=== PATIENT | male | born 1965 | race Caucasian/White ===

== ENCOUNTER → 2016-07-18 | Outpatient (REF) | payer MEDICARE, MEDICAID ==
[2016-07-18 20:14] LABS: BASO # 0.1 K/mm3 (0.0-0.2); BASO % 1.8 % (0.0-1.0); EOS # 0.1 K/mm3 (0.0-0.50); EOS % 1.1 % (0.0-3.0); LARGE UNSTAINED CELL # 0.1 K/mm3 (0.0-0.4); LARGE UNSTAINED CELL % 1.6 % (0.0-4.0); LYMPH # 2.1 K/mm3 (1.5-4.5); LYMPH % 29.1 % (24.0-44.0); MEAN CORPUSCULAR HGB CONC 34.3 g/dl (32.0-36.5); MEAN CORPUSCULAR VOLUME 87.5 fl (80.0-96.0); MONO # 0.4 K/mm3 (0.0-0.8); MONO % 6.1 % (0.0-5.0); NEUTROPHILS # 4.2 K/mm3 (1.8-7.7); NEUTROPHILS % 60.3 % (36.0-66.0); PLATELET COUNT, AUTOMATED 286 k/mm3 (150-450); RED CELL DISTRIBUTION WIDTH 12.8 % (11.5-14.5); WHITE BLOOD COUNT 6.9 K/mm3 (4.0-10.0)
[2016-07-18 20:48] LABS: ALBUMIN 4.2 GM/DL (3.2-5.2); ALBUMIN/GLOBULIN RATIO 1.5 (1.00-1.93); BILIRUBIN,TOTAL 0.5 MG/DL (0.2-1.0); CALCIUM LEVEL 8.9 MG/DL (8.5-10.1); CREATININE FOR GFR 1.37 MG/DL (0.70-1.30); FREE T4 1.13 NG/DL (0.76-1.46); GLOMERULAR FILTRATION RATE 58.1 (>56); POTASSIUM SERUM 4.5 MEQ/L (3.5-5.1)
[2016-07-22 00:15] LABS: Lyme Disease IgG/IgM Antibodie <0.91 ISR (0.00-0.90); Lyme Disease IgM Ab Quantitati <0.80 index (0.00-0.79)
== END ==
LOC: M LAB REF 19:38
PROVIDERS: ATTEND Physician Assistant
DX: R53.83 Other fatigue (principal)

== ENCOUNTER → 2016-10-17 | Outpatient (CLI) | payer MEDICARE ==
--- NOTE | 2016-10-17 11:26 | REP ---
TWO VIEW CHEST: No comparison. There is no evidence of acute infiltrate. No pleural effusion is seen. The heart is normal in size. The mediastinal silhouette is unremarkable. The visualized osseous structures are intact. There is mild tortuosity of the thoracic aorta. There are mild degenerative changes of the spine. IMPRESSION: No acute pulmonary disease. Signed by Ashutosh Limon MD 10/17/2016 05:36 P
== END ==
LOC: M ADAMS 10:27
PROVIDERS: ATTEND Family Medicine
DX: R07.89 Other chest pain (principal); R06.00 Dyspnea, unspecified; R53.83 Other fatigue; Z79.899 Other long term (current) drug therapy
CPT/HCPCS: 71020; 80053; 83036; 85025; 93005; G0463

== ENCOUNTER → 2016-10-17 | Outpatient (REF) | payer MEDICARE ==
[2016-10-17 13:09] LABS: BASO % 0.6 % (0.0-1.0); EOS # 0.1 K/mm3 (0.0-0.50); EOS % 0.9 % (0.0-3.0); LARGE UNSTAINED CELL # 0.1 K/mm3 (0.0-0.4); LARGE UNSTAINED CELL % 1.6 % (0.0-4.0); LYMPH # 1.7 K/mm3 (1.5-4.5); LYMPH % 23.2 % (24.0-44.0); MEAN CORPUSCULAR HEMOGLOBIN 30.4 pg (27.0-33.0); MEAN CORPUSCULAR HGB CONC 33.9 g/dl (32.0-36.5); MEAN CORPUSCULAR VOLUME 89.6 fl (80.0-96.0); MONO # 0.4 K/mm3 (0.0-0.8); MONO % 5.8 % (0.0-5.0); NEUTROPHILS # 4.9 K/mm3 (1.8-7.7); NEUTROPHILS % 67.9 % (36.0-66.0); PLATELET COUNT, AUTOMATED 300 k/mm3 (150-450); RED CELL DISTRIBUTION WIDTH 12.4 % (11.5-14.5); WHITE BLOOD COUNT 7.2 K/mm3 (4.0-10.0)
[2016-10-17 13:25] LABS: ALBUMIN 4.3 GM/DL (3.2-5.2); ALBUMIN/GLOBULIN RATIO 1.54 (1.00-1.93); ALKALINE PHOSPHATASE 61 U/L (45-117); ALT/SGPT 31 U/L (12-78); ANION GAP 7 MEQ/L (8-16); AST/SGOT 14 U/L (15-37); BILIRUBIN,TOTAL 0.5 MG/DL (0.2-1.0); BLOOD UREA NITROGEN 12 MG/DL (7-18); CALCIUM LEVEL 9.7 MG/DL (8.5-10.1); CARBON DIOXIDE LEVEL 27 MEQ/L (21-32); CHLORIDE LEVEL 105 MEQ/L (98-107); CREATININE FOR GFR 1.26 MG/DL (0.70-1.30); GLOMERULAR FILTRATION RATE > 60.0 (>56); GLUCOSE, FASTING 87 MG/DL (70-105); POTASSIUM SERUM 4.6 MEQ/L (3.5-5.1); SODIUM LEVEL 139 MEQ/L (136-145); TOTAL PROTEIN 7.1 GM/DL (6.4-8.2)
== END ==
LOC: M SFHCADAM 10:24
PROVIDERS: ATTEND Family Medicine
DX: R06.00 Dyspnea, unspecified (principal); R53.83 Other fatigue; R07.89 Other chest pain; Z79.899 Other long term (current) drug therapy

== ENCOUNTER 2018-01-12 15:11 | Emergency (ER) | payer OTHER, MEDICAID, MEDICARE ==
[2018-01-12] MEDS: ADACEL/BOOSTRIX VACCINE (DIPHTH/PERTUSS/ACELL/TETANUS)0.5ML SYR (90715) IM (16:23)
[2018-01-12] MEDS: CEPHALEXIN 500 MG CAP PO (16:24)
== END 2018-01-12 16:44 | disposition home or self-care (01) ==
LOC: M ED 15:11
DX: S61.213A Laceration without foreign body of left middle finger without damage to nail, initial encounter (principal); W26.8XXA Contact with other sharp object(s), not elsewhere classified, initial encounter; Y92.89 Other specified places as the place of occurrence of the external cause; F17.200 Nicotine dependence, unspecified, uncomplicated; Z88.8 Allergy status to other drugs, medicaments and biological substances
CPT/HCPCS: 90715

== ENCOUNTER 2019-06-16 09:19 | Emergency (ER) | payer MEDICAID, MEDICARE, OTHER ==
[~2019-06-16] VITALS: Ht 182.9 cm; Wt 80.6 kg
[~2019-06-16 09:19] MED LIST: KEFL500C17 PO
[2019-06-16] MEDS ORDERED: LIDOCAINE W/EPINEPHRINE 1% 20ML VIAL SC ONE (10:30)
[2019-06-16 10:56] LABS: BASO % 0.3 % (0.0-1.0); EOS # 0.1 10^3/uL (0.0-0.5); EOS % 0.7 % (0.0-3.0); HEMATOCRIT 46.3 % (42.0-52.0); HEMOGLOBIN 15.1 g/dl (13.5-17.5); LYMPH # 1.8 10^3/uL (1.5-5.0); LYMPH % 25.2 % (24.0-44.0); MEAN CORPUSCULAR HEMOGLOBIN 28.8 pg (27.0-33.0); MEAN CORPUSCULAR HGB CONC 32.6 g/dl (32.0-36.5); MEAN CORPUSCULAR VOLUME 88.4 fl (80.0-96.0); MONO # 0.6 10^3/uL (0.0-0.8); MONO % 7.7 % (0.0-5.0); NEUTROPHILS # 4.8 10^3/uL (1.5-8.5); NEUTROPHILS % 65.8 % (36.0-66.0); PLATELET COUNT, AUTOMATED 210 10^3/uL (150-450); RED BLOOD COUNT 5.24 10^6/uL (4.30-6.10); WHITE BLOOD COUNT 7.3 10^3/uL (4.0-10.0)
[2019-06-16 11:20] LABS: BLOOD UREA NITROGEN 11 MG/DL (7-18); CALCIUM LEVEL 8.7 MG/DL (8.5-10.1); CARBON DIOXIDE LEVEL 31 MEQ/L (21-32); CHLORIDE LEVEL 107 MEQ/L (98-107); CREATININE FOR GFR 0.98 MG/DL (0.70-1.30); GLOMERULAR FILTRATION RATE > 60.0 (>56); GLUCOSE, FASTING 102 MG/DL (70-100); POTASSIUM SERUM 4.2 MEQ/L (3.5-5.1); SODIUM LEVEL 141 MEQ/L (136-145)
[2019-06-16 11:26] LABS: INFLUENZA A AMPLIFICATION NEGATIVE (NEGATIVE); INFLUENZA B AMPLIFICATION NEGATIVE (NEGATIVE)
[2019-06-16] MEDS ORDERED: BACT800T5 PO (11:39)
[2019-06-16] MEDS ORDERED: IBUP-1022 PO (11:39)
[2019-06-16 11:43] VITALS: BP 124/57
[2019-06-16] MEDS ORDERED: BACTRIM 160MG/800MG DS TAB PO ONE (11:45)
[2019-06-16] MEDS ORDERED: IBUPROFEN 600 MG TAB PO ONE (11:45)
--- NOTE | 2019-06-16 14:27 | REP ---
Clinical: Cough and chills . Comparison: 10/17/2016 . Technique: PA and lateral. Findings: The mediastinum and cardiac silhouette are normal. The lung brooks are clear and without acute consolidation, effusion, or pneumothorax. The skeletal structures are intact and normal. Impression: 1. No acute cardiopulmonary process. Electronically Signed by Vasu Blanton MD 06/16/2019 10:54 A
== END 2019-06-16 11:50 | disposition home or self-care (01) ==
LOC: M ED 09:19
DX: L02.811 Cutaneous abscess of head [any part, except face] (principal); Z88.8 Allergy status to other drugs, medicaments and biological substances; F17.210 Nicotine dependence, cigarettes, uncomplicated

== ENCOUNTER 2019-06-28 07:41 | Inpatient (IN) | payer MEDICAID, MEDICARE ==
[~2019-06-28] VITALS: Ht 182.9 cm; Wt 81.0 kg
[~2019-06-28 07:41] MED LIST changes: +BACT800T5 PO; +CLEO150C PO; +IBUP-1022 PO; +NORC1TAB7 PO
[2019-06-28] MEDS ORDERED: KETOROLAC 30 MG/ML VIAL (J1885) As Ordered ONE (08:13)
[2019-06-28] MEDS ORDERED: KETOROLAC 30 MG/ML VIAL (J1885) IV ONE (08:15)
[2019-06-28] MEDS ORDERED: NS 1,000 ML IV ONE (08:15)
[2019-06-28 08:26] LABS: BASO # 0.1 10^3/uL (0.0-0.2); BASO % 0.4 % (0.0-1.0); EOS # 0.1 10^3/uL (0.0-0.5); EOS % 0.8 % (0.0-3.0); HEMATOCRIT 44.4 % (42.0-52.0); HEMOGLOBIN 14.3 g/dl (13.5-17.5); LYMPH % 16.5 % (24.0-44.0); MEAN CORPUSCULAR HEMOGLOBIN 29.1 pg (27.0-33.0); MEAN CORPUSCULAR HGB CONC 32.2 g/dl (32.0-36.5); MEAN CORPUSCULAR VOLUME 90.2 fl (80.0-96.0); MONO # 0.8 10^3/uL (0.0-0.8); MONO % 6.7 % (0.0-5.0); NEUTROPHILS # 9.1 10^3/uL (1.5-8.5); NEUTROPHILS % 74.8 % (36.0-66.0); PLATELET COUNT, AUTOMATED 325 10^3/uL (150-450); RED BLOOD COUNT 4.92 10^6/uL (4.30-6.10); WHITE BLOOD COUNT 12.2 10^3/uL (4.0-10.0)
[2019-06-28] MEDS ORDERED: MORPHINE 4 MG/ML 1ML VIAL/SYRINGE (J2270) IV ONE (08:45)
[2019-06-28] MEDS ORDERED: ONDANSETRON 4MG/2ML VIAL (J2405) IV ONE (08:45)
[2019-06-28 08:54] LABS: ALBUMIN 3.7 GM/DL (3.2-5.2); BILIRUBIN,DIRECT 0.1 MG/DL (0.0-0.2); BILIRUBIN,TOTAL 0.3 MG/DL (0.2-1.0); TOTAL PROTEIN 6.3 GM/DL (6.4-8.2)
[2019-06-28] MEDS ORDERED: PANTOPRAZOLE SODIUM 40 MG in D5W 50 ML IV SCH (09:30)
[2019-06-28] MEDS ORDERED: PIPERACILLIN/TAZOBACTAM SOD 3.375 GM in D5W MINI-BAG PLUS 50 ML IV ONE (09:30)
--- NOTE | 2019-06-28 09:40 | REP ---
CT ABDOMEN AND PELVIS WITHOUT CONTRAST: CT abdomen and pelvis performed without oral or IV contrast. Sagittal and coronal reconstruction images are performed. No infiltrate is seen in the visualized lung bases. The liver demonstrates a small cyst in the right lobe anteriorly approximately 9.0 mm in diameter. Gallbladder is grossly unremarkable. Spleen, adrenals, pancreas, and kidneys are grossly unremarkable. There is no hydronephrosis bilaterally. There is mild atherosclerotic calcification of the abdominal aorta without aneurysm. I see no adenopathy. There is thickening of the descending duodenum with mild surrounding edema and a tiny amount of fluid. There is extraluminal air focally along the posterior wall of the duodenum. Findings are consistent with a perforated duodenal ulcer. No other areas of free extraluminal air are seen. No other definite bowel abnormality is seen. The appendix is normal. No pelvic mass is seen. Urinary bladder is mildly distended and grossly unremarkable. IMPRESSION: Thickened descending duodenum with adjacent surrounding edema and tiny amount of fluid. There is extraluminal focal air along the posterior wall of the duodenum. Findings are consistent with a perforated duodenal ulcer. Jeanne Savage was informed of these findings at the time of the exam at approximately 9 a.m., 06/28/2019. Electronically Signed by Ashutosh Limon MD 06/28/2019 04:01 P
[2019-06-28] MEDS ORDERED: HYDR-3713 PO (09:46)
[2019-06-28] MEDS ORDERED: CLIN150C14 PO (09:46)
[2019-06-28] MEDS ORDERED: ONDANSETRON 4MG/2ML VIAL (J2405) IV PRN (12:00)
[2019-06-28] MEDS: MORPHINE 2 MG/ML 1ML VIAL (J2270) IV PRN ×3 (12:31→19:54)
[2019-06-28] MEDS: PANTOPRAZOLE 40MG INJ (PROTONIX) (C9113) IV SCH ×2 (14:34→20:46)
[2019-06-28] MEDS: LR 1,000 ML IV SCH ×2 (14:35→20:35)
[2019-06-28 15:32] VITALS: BP 123/72
[2019-06-28] MEDS: PIPERACILLIN/TAZOBACTAM SOD 3.375 GM in D5W MINI-BAG PLUS 50 ML IV SCH ×2 (16:51→22:30)
[2019-06-28 17:42] LABS: BASO % 0.1 % (0.0-1.0); EOS % 0.1 % (0.0-3.0); HEMATOCRIT 42.6 % (42.0-52.0); HEMOGLOBIN 13.8 g/dl (13.5-17.5); LYMPH # 0.6 10^3/uL (1.5-5.0); LYMPH % 3.3 % (24.0-44.0); MEAN CORPUSCULAR HEMOGLOBIN 29.3 pg (27.0-33.0); MEAN CORPUSCULAR HGB CONC 32.4 g/dl (32.0-36.5); MEAN CORPUSCULAR VOLUME 90.4 fl (80.0-96.0); MONO # 0.9 10^3/uL (0.0-0.8); MONO % 5.1 % (0.0-5.0); NEUTROPHILS # 15.8 10^3/uL (1.5-8.5); NEUTROPHILS % 90.9 % (36.0-66.0); PLATELET COUNT, AUTOMATED 284 10^3/uL (150-450); RED BLOOD COUNT 4.71 10^6/uL (4.30-6.10); WHITE BLOOD COUNT 17.3 10^3/uL (4.0-10.0)
--- NOTE | 2019-06-28 18:37 | REPVR ---
PROCEDURE INFORMATION: Exam: CT Abdomen Without Contrast Exam date and time: 06/28/2019 6:00 PM Age: 53 years old Clinical indication: Abnormal findings; Abnormal radiologic finding of the abdomen; Radiologic exam and body structure: CT ap; Duodenal perforation; Additional info: Follow up contained duodenal perforation TECHNIQUE: Imaging protocol: Computed tomography images of the abdomen without contrast. Radiation optimization: All CT scans at this facility use at least one of these dose optimization techniques: automated exposure control; mA and/or kV adjustment per patient size (includes targeted exams where dose is matched to clinical indication); or iterative reconstruction. COMPARISON: CT ABD PELVIS W/O CONTRAST 06/28/2019 8:45 AM FINDINGS: Lungs: Mild bilateral lower lobe atelectasis, increased since the prior study. Liver: Normal. No mass. Gallbladder and bile ducts: Mild gallbladder distention measuring 4.8 cm in diameter which is increased. Pancreas: Normal. No ductal dilation. Spleen: Normal. No splenomegaly. Adrenals: Normal. No mass. Kidneys and ureters: Normal. No hydronephrosis. Stomach and bowel: Normal. No obstruction. No mucosal thickening. Intraperitoneal space: Unremarkable. No free air. No significant fluid collection. Retroperitoneal space: Posterior to the second and proximal third portions of the duodenum, there is a persistent gas collection with surrounding retroperitoneal induration and suggestion of a developed wall which is slightly increased in size since the prior study. There is slight induration of the anterior pararenal space along the posterior aspect of the gallbladder and the anterior aspect of the right kidney which is probably anterior pararenal space. There is thickening of the anterior pararenal fascia. Lymph nodes: Unremarkable. No enlarged lymph nodes. Vasculature: There is mild calcification of the abdominal aorta with extension into the iliac arteries. Bones/joints: Unremarkable.No acute fracture. No dislocation. Soft tissues: Unremarkable. IMPRESSION: 1. Contained collection of retroperitoneal gas and fluid posterior to the second and proximal third portions of the duodenal sweep which is slightly more distended since the prior study done earlier in the day and may reflect a contained site of perforated post bulbar ulceration. Induration of the right anterior pararenal space is increased. 2. Mild distention of the gallbladder which is increased. 3. Mild bilateral lower lobe atelectasis, increased since the prior study. Electronically signed by: Akash Zambrano On 06/28/2019 18:37:03 PM
[2019-06-28 20:00] VITALS: BP 129/61
[2019-06-29] MEDS: MORPHINE 2 MG/ML 1ML VIAL (J2270) IV PRN (00:43)
[2019-06-29 02:00] VITALS: BP 173/89
[2019-06-29] MEDS: MORPHINE 4 MG/ML 1ML VIAL/SYRINGE (J2270) IV PRN ×4 (02:31→22:07)
[2019-06-29] MEDS: LR 1,000 ML IV SCH (03:39)
[2019-06-29] MEDS: PIPERACILLIN/TAZOBACTAM SOD 3.375 GM in D5W MINI-BAG PLUS 50 ML IV SCH ×4 (04:10→22:07)
[2019-06-29] MEDS: KETOROLAC 30 MG/ML VIAL (J1885) IV PRN ×2 (04:11→19:36)
[2019-06-29 05:00] VITALS: BP 116/67
[2019-06-29 05:03] LABS: BASO % 0.1 % (0.0-1.0); HEMATOCRIT 39.7 % (42.0-52.0); HEMOGLOBIN 13.2 g/dl (13.5-17.5); LYMPH # 0.6 10^3/uL (1.5-5.0); LYMPH % 3.5 % (24.0-44.0); MEAN CORPUSCULAR HEMOGLOBIN 29.7 pg (27.0-33.0); MEAN CORPUSCULAR HGB CONC 33.2 g/dl (32.0-36.5); MEAN CORPUSCULAR VOLUME 89.2 fl (80.0-96.0); MONO # 0.6 10^3/uL (0.0-0.8); MONO % 3.5 % (0.0-5.0); NEUTROPHILS # 15.9 10^3/uL (1.5-8.5); NEUTROPHILS % 92.4 % (36.0-66.0); PLATELET COUNT, AUTOMATED 270 10^3/uL (150-450); RED BLOOD COUNT 4.45 10^6/uL (4.30-6.10); WHITE BLOOD COUNT 17.2 10^3/uL (4.0-10.0)
[2019-06-29 05:28] LABS: ALBUMIN 2.8 GM/DL (3.2-5.2); ALT/SGPT 21 U/L (12-78); AMYLASE 31 U/L (25-115); BILIRUBIN,TOTAL 0.5 MG/DL (0.2-1.0); BLOOD UREA NITROGEN 17 MG/DL (7-18); CALCIUM LEVEL 8.4 MG/DL (8.5-10.1); CARBON DIOXIDE LEVEL 25 MEQ/L (21-32); CHLORIDE LEVEL 107 MEQ/L (98-107); CREATININE FOR GFR 1.09 MG/DL (0.70-1.30); GLOMERULAR FILTRATION RATE > 60.0 (>56); GLUCOSE, FASTING 130 MG/DL (70-100); POTASSIUM SERUM 3.7 MEQ/L (3.5-5.1); SODIUM LEVEL 139 MEQ/L (136-145); TOTAL PROTEIN 5.8 GM/DL (6.4-8.2)
[2019-06-29] MEDS: PANTOPRAZOLE 40MG INJ (PROTONIX) (C9113) IV SCH ×2 (07:36→20:19)
--- NOTE | 2019-06-29 08:36 | IPN ---
DATE: 06/29/2019 HISTORY: The patient was admitted on 06/28/2019 with sudden onset of pain in the right midabdomen and flank. A CT scan showed evidence for a contained perforation in the region of the second portion of the duodenum. The patient was started on antibiotics and Protonix and kept nothing by mouth. Later in the day repeat labs were checked and showed still an elevated white blood cell count and a repeat CT scan showed slightly increased amounts of air contained still adjacent to the duodenum. Overnight, he had at times severe pain up to a 10/10 requiring morphine. He has had no nausea or vomiting but continues to complain of severe pain in the right midabdomen and right lower quadrant and flank. He has also complained of some pain more on the left side in the lower abdomen as well. Vital signs show that he has remained afebrile. His pulse has been up somewhat since about 8 o'clock last night into the 80s and low 90s. Blood pressure was little high at 2 o'clock in the morning but is back to normal at 5 o'clock this morning. Intake and output shows that he has had somewhat low but acceptable urine output with 150 mL overnight. PHYSICAL EXAMINATION: The patient is lying quietly on the hospital bed. At rest, he appears fairly comfortable. Heart exam shows a regular rhythm in the low 80s. The lungs are clear. The abdomen is flat and he has a few bowel sounds present. He is quite tender to palpation in the mid abdomen but also extending down into both lower quadrants somewhat and to the right flank region. This may be somewhat worse than it was last evening. Laboratory studies this morning show that his white count remains 17,000 with a hemoglobin of 13, hematocrit of 40 and a platelet count of 270,000. Differential count shows 92% neutrophils, 4% lymphocytes and 4% monocytes. Chemistry profile shows normal electrolytes, BUN, creatinine and a glucose of 130. Liver function tests are normal. Total protein and albumin are both slightly depressed and his amylase is normal at 31. IMPRESSION: The patient has been having still significant pain overnight and even this morning. The pain may be somewhat more diffuse and into the lower portions of the abdomen. His white count remains elevated at 17,000. Overall, I think it would be prudent for us to proceed with exploration. It may be that he has perforated freely into the abdomen based on his increased area of pain, but even if not, then monitoring him for perforation would be very difficult given his baseline level of pain and tenderness. PLAN: I discussed with the patient my recommendation that we proceed with exploratory laparotomy to repair his perforation. He was counseled that because of the location of the supposed perforation the surgery is somewhat more difficult and I would not recommend attempting this laparoscopically. He had an opportunity to ask questions and is agreeable with the plan to proceed with surgery this morning. I will add him onto the schedule as long as we can get that done this morning. JORGE ALBERTO
--- NOTE | 2019-06-29 08:45 | REP ---
Three views chest/abdomen: 06/29/2019. Indication: Epigastric pain. Comparison: CT abdomen complete of the previous day. Findings: The sequelae of the perforated duodenal ulcer are better demonstrated on yesterday's CT studies. No acute changes are detected on the plain films today. The lungs are clear. There is no pleural effusion or pneumothorax. Cardiomediastinal silhouette is unremarkable. Impression: The fluid and gas adjacent to the duodenum are better demonstrated on yesterday's CT studies. Electronically Signed by Chandan Hoyos DO 06/29/2019 08:36 A
[2019-06-29] MEDS ORDERED: ZOSYN 3.375 GM VIAL (J2543) As Ordered ONE (09:10)
[2019-06-29] MEDS ORDERED: ONDANSETRON 4MG/2ML VIAL (J2405) As Ordered ONE (10:00)
[2019-06-29] MEDS ORDERED: ROCURONIUM BROMIDE 50 MG/5 ML VIAL As Ordered ONE (10:00)
[2019-06-29] MEDS ORDERED: LIDOCAINE 2% INJ 100 MG/5 ML SDV (FOR ANES.) As Ordered ONE (10:00)
[2019-06-29] MEDS ORDERED: MIDAZOLAM INJ 2 MG/2 ML VIAL (J2250) As Ordered ONE (10:00)
[2019-06-29] MEDS ORDERED: dexameTHASONE 4 MG/ML 1ML VIAL (J1100) As Ordered ONE (10:00)
[2019-06-29] MEDS ORDERED: PROPOFOL 200 MG/20 ML VIAL As Ordered ONE (10:00)
[2019-06-29] MEDS ORDERED: fentaNYL 100 MCG/2 ML INJECTION (J3010) As Ordered ONE ×2 (10:00→14:02)
[2019-06-29] MEDS ORDERED: fentaNYL 250 MCG/5 ML INJECTION (J3010) As Ordered ONE (10:00)
[2019-06-29] MEDS ORDERED: ACETAMINOPHEN 1000MG 100ML IV BTL (OFIRMEV) (J0131 PER 10MG) As Ordered ONE (10:35)
[2019-06-29] MEDS ORDERED: SUGAMMADEX SODIUM 500 MG/5 ML VIAL (BRIDION) As Ordered ONE (10:35)
[2019-06-29] MEDS ORDERED: KETOROLAC 60 MG/2 ML VIAL (J1885) As Ordered ONE (10:51)
[2019-06-29] MEDS ORDERED: HYDROMORPHONE HCL 0.5 MG/ 0.5 ML SYRINGE (J1170 PER 1) IV PRN (13:45)
[2019-06-29] MEDS ORDERED: PERCOCET 5MG/325MG TAB PO PRN (13:45)
[2019-06-29] MEDS ORDERED: ONDANSETRON 4MG/2ML VIAL (J2405) IV PRN (13:45)
[2019-06-29] MEDS ORDERED: LR 1,000 ML IV SCH (13:45)
[2019-06-29] MEDS: fentaNYL 100 MCG/2 ML INJECTION (J3010) IV PRN ×3 (14:05→14:15)
[2019-06-29 14:32] VITALS: BP 115/67
--- NOTE | 2019-06-29 14:50 | HPE ---
DATE OF ADMISSION: 06/28/2019 ADMITTING DIAGNOSIS: Contained perforation of a duodenal ulcer. HISTORY OF PRESENT ILLNESS: The patient is a 53-year-old man who presented to the emergency department at [facility] at approximately 7:40 in the morning on June 28, 2019. He reported that he had been awakened at about 4:30 in the morning with some severe right flank pain. He described a sharp pain in the right anterolateral abdomen which extended into his flank and around somewhat to his back. He reported some nausea but no vomiting. The pain waxed and waned somewhat but became quite severe and he presented to the emergency department for evaluation. He reports no prior similar pain. He has had no fevers or chills associated with this. In the emergency department he was evaluated by the PA with some laboratory studies. He had a slight elevation of his white blood cell count and had a CT scan of the abdomen and pelvis obtained. The CT report indicated the presence of a few air bubbles in the retroperitoneum adjacent to the second portion of the duodenum. There was no free air identified elsewhere in the abdomen and no free fluid. I was consulted. The patient denies any history of prior peptic ulcer disease, hepatitis, or pancreatitis. He has had no history of bleeding. The patient is now admitted for management of his contained perforation of a duodenal ulcer. MEDICATIONS: The patient's only current medications are clindamycin of 150 mg by mouth four times daily, which he was provided on June 23, 2019 for a scalp cyst infection and some [place] that was provided at the same time. ALLERGIES: The patient reports allergies to PHENERGAN with an unknown reaction and TRIMETHOPRIM SULFAMETHOXAZOLE which leads to nausea. PAST SURGICAL HISTORY: Surgical history is negative other than incision and drainage of a scalp abscess. 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 He had a fracture of the back at the same time and apparently also had some seizures at that time but has not recently been on any antiseizure medications. The patient is a daily smoker. SOCIAL HISTORY: The patient currently smokes about a pack cigarettes per day. He denies any illicit drug use. He denies any significant alcohol intake. FAMILY HISTORY: Shows no significant heritable conditions. REVIEW OF SYSTEMS: Reveals no history of chest pain or palpitations or cardiac issues. He has no shortness of breath, cough, wheezing or sputum production. He has had no fevers or chills. He denies any dysuria or hematuria, though his urine stream has been somewhat diminished. He denies any melena or hematochezia. He has not had significant constipation or diarrhea. He denies any history of deep venous thrombosis (DVT) or pulmonary embolus. He has no current bone or joint issues. PHYSICAL EXAMINATION: In the emergency department, his most recent vital signs showed a temperature of 97, pulse of 71, blood pressure of 134/88, respirations of 18. General: The patient is a fairly fit appearing multiply tattooed gentleman lying quietly on the emergency room (ER) stretcher. He is alert and appropriately responsive. He appears oriented. Skin is warm and dry. Sclerae are anicteric. Mucous membranes are moist. Neck is supple without mass. There is no cervical bruit. Heart exam shows a regular rate and rhythm of about 70. The lungs are clear to auscultation bilaterally. Abdomen is flat. He has no evident scars. There is no evident inguinal or umbilical hernia. He has bowel sounds present. The abdomen is generally soft to palpation. He has some tenderness identified, particularly on the right midabdomen about at or slightly above the level of the umbilicus and extending toward the flank. He does not have rebound tenderness or evidence significant referred tenderness. Extremities are without edema and he has intact radial and dorsalis pedis pulses. Laboratory studies show a sodium 138, potassium 3.8, chloride 106, CO2 of 24, BUN of 19, creatinine of 1.1 and a glucose of 121. Liver function tests are normal with a protein of 6.3 and albumin of 3.7. Lipase is 77. CBC shows a white count of 12, hemoglobin 14, hematocrit 44 and platelet count of 325,000. The differential count shows 75% neutrophils, 16% lymphocytes and 7% monocytes. A urinalysis showed a specific gravity of 1.020 with a pH of 5 and there was no suggestion of urinary tract infection. The abdominal CT scan was obtained and was interpreted by Dr. Limon of radiology as showing a thickened descending duodenum with some adjacent surrounding edema and a tiny amount of fluid. There was an extraluminal focal air along the posterior wall of the duodenum. The findings were felt to be consistent with a perforated duodenal ulcer. There were no other areas of free extraluminal air seen. IMPRESSION: The patient by CT scan has evidence for a contained perforation of an ulcer of the second portion of the duodenum. There is no free fluid and no evidence of any free air within the abdomen. His pain seems somewhat out of proportion to the evidence for the perforation, but he clearly does not have peritonitis evident on exam. His white blood cell count is slightly elevated. PLAN: The patient will be admitted. I believe it would be reasonable to attempt nonoperative management of what appears to be a contained ulcer perforation. He will be started on Protonix 40 mg IV twice daily. Zosyn 3.375 grams will be given every 6 hours. He will be kept nothing by mouth. I discussed with him a possible nasogastric tube and he has refused. I will recheck his CBC and obtain a repeat CT scan of the abdomen without contrast in approximately 8 hours from the first to see if there has been any evidence of development of free air, indicating a free perforation. The patient was counseled that his perforation could progress to a free perforation into the abdomen which would necessitate proceeding with surgery. I advised him that if we are successful with the nonoperative management that he should be able to avoid any surgery and remain on medications for a time for treatment. The patient had an opportunity to ask questions. He desires to proceed as I have recommended. I will reassess him later in the day after he has his repeat labs and CT scan obtained. JORGE ALBERTO
[2019-06-29 15:00] VITALS: BP 129/71
[2019-06-29 16:05] VITALS: BP 127/70
[2019-06-29 20:16] VITALS: BP 132/80
[2019-06-30 00:30] VITALS: BP 146/77
[2019-06-30] MEDS: MORPHINE 4 MG/ML 1ML VIAL/SYRINGE (J2270) IV PRN ×5 (00:59→23:19)
[2019-06-30] MEDS: PIPERACILLIN/TAZOBACTAM SOD 3.375 GM in D5W MINI-BAG PLUS 50 ML IV SCH ×4 (03:36→23:18)
[2019-06-30] MEDS: KETOROLAC 30 MG/ML VIAL (J1885) IV PRN ×3 (03:36→20:10)
[2019-06-30 04:00] VITALS: BP 140/83
[2019-06-30 06:34] LABS: BASO % 0.3 % (0.0-1.0); EOS % 0.3 % (0.0-3.0); HEMATOCRIT 41.5 % (42.0-52.0); HEMOGLOBIN 13.4 g/dl (13.5-17.5); LYMPH % 8.1 % (24.0-44.0); MEAN CORPUSCULAR HEMOGLOBIN 29.2 pg (27.0-33.0); MEAN CORPUSCULAR HGB CONC 32.3 g/dl (32.0-36.5); MEAN CORPUSCULAR VOLUME 90.4 fl (80.0-96.0); MONO # 0.5 10^3/uL (0.0-0.8); MONO % 4.3 % (0.0-5.0); NEUTROPHILS # 10.2 10^3/uL (1.5-8.5); NEUTROPHILS % 86.2 % (36.0-66.0); PLATELET COUNT, AUTOMATED 247 10^3/uL (150-450); RED BLOOD COUNT 4.59 10^6/uL (4.30-6.10); WHITE BLOOD COUNT 11.9 10^3/uL (4.0-10.0)
[2019-06-30 07:02] LABS: ALBUMIN 2.5 GM/DL (3.2-5.2); ALT/SGPT 43 U/L (12-78); AMYLASE 31 U/L (25-115); BILIRUBIN,TOTAL 0.7 MG/DL (0.2-1.0); BLOOD UREA NITROGEN 20 MG/DL (7-18); CALCIUM LEVEL 8.4 MG/DL (8.5-10.1); CARBON DIOXIDE LEVEL 27 MEQ/L (21-32); CHLORIDE LEVEL 107 MEQ/L (98-107); CREATININE FOR GFR 1.09 MG/DL (0.70-1.30); GLOMERULAR FILTRATION RATE > 60.0 (>56); GLUCOSE, FASTING 113 MG/DL (70-100); POTASSIUM SERUM 3.9 MEQ/L (3.5-5.1); SODIUM LEVEL 139 MEQ/L (136-145); TOTAL PROTEIN 5.9 GM/DL (6.4-8.2)
[2019-06-30] MEDS: PANTOPRAZOLE 40MG INJ (PROTONIX) (C9113) IV SCH ×2 (09:04→20:10)
[2019-06-30 14:28] VITALS: BP 146/94
[2019-06-30] MEDS: LR 1,000 ML IV SCH (17:15)
[2019-06-30 22:00] VITALS: BP 146/92
[2019-07-01] MEDS: MORPHINE 4 MG/ML 1ML VIAL/SYRINGE (J2270) IV PRN ×4 (01:53→17:49)
[2019-07-01] MEDS: LR 1,000 ML IV SCH ×4 (01:54→23:30)
[2019-07-01 02:00] VITALS: BP 145/89
[2019-07-01] MEDS: PIPERACILLIN/TAZOBACTAM SOD 3.375 GM in D5W MINI-BAG PLUS 50 ML IV SCH ×4 (04:33→21:55)
[2019-07-01] MEDS: KETOROLAC 30 MG/ML VIAL (J1885) IV PRN ×3 (04:34→23:03)
[2019-07-01 06:00] VITALS: BP 149/87
[2019-07-01 06:30] LABS: BLOOD UREA NITROGEN 22 MG/DL (7-18); CALCIUM LEVEL 8.5 MG/DL (8.5-10.1); CARBON DIOXIDE LEVEL 25 MEQ/L (21-32); CHLORIDE LEVEL 108 MEQ/L (98-107); CREATININE FOR GFR 0.97 MG/DL (0.70-1.30); GLOMERULAR FILTRATION RATE > 60.0 (>56); GLUCOSE, FASTING 93 MG/DL (70-100); POTASSIUM SERUM 3.9 MEQ/L (3.5-5.1); SODIUM LEVEL 140 MEQ/L (136-145)
[2019-07-01] MEDS: PANTOPRAZOLE 40MG INJ (PROTONIX) (C9113) IV SCH ×2 (08:42→21:55)
[2019-07-01] MEDS ORDERED: GASTROGRAFIN SOLUTION 30ML (Q9963) As Ordered ONE ×2 (10:12→11:21)
[2019-07-01 14:00] VITALS: BP 135/87
[2019-07-01] MEDS ORDERED: PERCOCET 5MG/325MG TAB PO PRN (15:45)
[2019-07-01] MEDS: ENOXAPARIN 40 MG/0.4 ML SYRINGE (J1650) SC SCH (16:20)
[2019-07-01 18:00] VITALS: BP 143/84
--- NOTE | 2019-07-01 20:48 | IPN ---
DATE: 06/30/2019 HISTORY The patient is now postop day #1 from exploratory laparotomy with identification of a perforated duodenal diverticulum. This was resected after exploring the duodenum through an anterolateral duodenotomy. He has done well following surgery. He denies any nausea or vomiting. He reports he has had some flatus. He has remained nothing by mouth. Vital signs: Show that he has been afebrile since surgery. His pulse is in the 70s and 80s and his blood pressure is in the 128-148 systolic. Intake and output shows that he has had yesterday 2100 in with 850 out. 700 of that was urine output and 100 mL was from his drain. His drain had had 100 recorded out so far today. PHYSICAL EXAMINATION The patient is lying quietly on the hospital bed. He is alert and oriented. He looks fairly comfortable at rest. Heart exam shows a regular rate and rhythm. The lungs are clear. The abdomen is flat. He does have some bowel sounds present. The abdomen is soft with expected tenderness near the midline incision. His drain has some primarily serous fluid in the bulb. LABORATORY STUDIES: Show today a white count of 12 which is down from 17 yesterday. Hemoglobin is 13 with a hematocrit of 42 and a platelet count of 247,000. Differential count shows 86% neutrophils, 8% lymphocytes and 4% monocytes. Chemistry profile shows normal electrolytes with BUN of 20, creatinine 1.09 and a glucose of 113. Liver function tests are normal and his amylase is normal at 31. IMPRESSION The patient is doing very well postop day #1 from repair of his perforated duodenal diverticulum. He appears much more comfortable than he was before surgery. The drain is putting out small amounts of serosanguineous fluid. There is no sign of any bile staining. PLAN The patient will remain nothing by mouth for another 24 hours. I will see if we can obtain a water contrast upper GI series tomorrow to confirm that his duodenal closure is sound. If this is without leak and there is good flow of contrast through the duodenum I will allow him to take some sips of clear liquids tomorrow. He will remain on some IV fluid and his piperacillin tazobactam. He was encouraged to be up out of bed ambulating. [facility]ENTER[facility]
[2019-07-01 22:00] VITALS: BP 148/77
[2019-07-02] VITALS (7 sets, daily range): BP systolic 134–167; BP diastolic 80–93
[2019-07-02] MEDS: MORPHINE 4 MG/ML 1ML VIAL/SYRINGE (J2270) IV PRN ×6 (02:26→23:56)
[2019-07-02] MEDS: PIPERACILLIN/TAZOBACTAM SOD 3.375 GM in D5W MINI-BAG PLUS 50 ML IV SCH ×4 (04:14→21:40)
[2019-07-02 06:28] LABS: BASO # 0.1 10^3/uL (0.0-0.2); BASO % 0.8 % (0.0-1.0); EOS # 0.2 10^3/uL (0.0-0.5); HEMATOCRIT 38.4 % (42.0-52.0); HEMOGLOBIN 12.6 g/dl (13.5-17.5); LYMPH # 1.3 10^3/uL (1.5-5.0); LYMPH % 19.8 % (24.0-44.0); MEAN CORPUSCULAR HEMOGLOBIN 29.4 pg (27.0-33.0); MEAN CORPUSCULAR HGB CONC 32.8 g/dl (32.0-36.5); MEAN CORPUSCULAR VOLUME 89.7 fl (80.0-96.0); MONO # 0.6 10^3/uL (0.0-0.8); MONO % 8.6 % (0.0-5.0); NEUTROPHILS # 4.5 10^3/uL (1.5-8.5); NEUTROPHILS % 67.3 % (36.0-66.0); PLATELET COUNT, AUTOMATED 280 10^3/uL (150-450); RED BLOOD COUNT 4.28 10^6/uL (4.30-6.10); WHITE BLOOD COUNT 6.7 10^3/uL (4.0-10.0)
[2019-07-02 06:56] LABS: ALBUMIN 2.3 GM/DL (3.2-5.2); ALT/SGPT 27 U/L (12-78); BILIRUBIN,TOTAL 0.8 MG/DL (0.2-1.0); BLOOD UREA NITROGEN 21 MG/DL (7-18); CALCIUM LEVEL 8.6 MG/DL (8.5-10.1); CARBON DIOXIDE LEVEL 26 MEQ/L (21-32); CHLORIDE LEVEL 107 MEQ/L (98-107); GLOMERULAR FILTRATION RATE > 60.0 (>56); GLUCOSE, FASTING 90 MG/DL (70-100); POTASSIUM SERUM 3.8 MEQ/L (3.5-5.1); SODIUM LEVEL 140 MEQ/L (136-145)
--- NOTE | 2019-07-02 07:25 | IPN ---
DATE: 07/01/2019 HISTORY: The patient is now postop day #2 from an open exploratory laparotomy with resection of a perforated duodenal diverticulum. He has a single drain in place draining the area of his perforation and duodenotomy. Vital signs show that he has remained afebrile over the past 24 hours. His pulse is now down into the 60s. His blood pressure is good and his room air oxygen saturation is normal. Intake and output shows that yesterday he had 925 mL recorded in with 340 mL recorded out. 140 mL of that was from his abdominal drain. So far today he has had only 25 mL of drainage. PHYSICAL EXAMINATION: The patient appears more comfortable today lying quietly in the bed. Skin is warm and dry. Heart exam shows a regular rhythm. The lungs are clear. The abdomen is flat. He does have some bowel sounds present. His drain is draining serous fluid only with no evidence of biliary staining. His dressing is dry. LABORATORY STUDIES: Today showed sodium 140, potassium 3.9, chloride 108, CO2 of 25, BUN of 22, creatinine 0.97 and a glucose of 93. Culture from his surgery showed no growth aerobically or anaerobically at this time. The patient had an upper GI series done today with water-soluble contrast. There is not yet a report on this study available in the system. I have reviewed the images personally and there is contrast seen in the stomach which does transit into the small bowel within a short period of time. There may be some slight narrowing in his duodenum, but there is no evidence of any contrast leak. IMPRESSION: The patient is doing well now 2 days postop from resection of his perforated duodenal diverticulum. His GI series today shows that there is contrast passing through the duodenum without any evidence of leak. He is clearly more comfortable today than he was yesterday. PLAN: The patient will be started on some limited clear liquids today. I will cut his IV rate back to 75 mL an hour. I will start him on some Percocet tablets orally. His Zosyn will be continued as will his pantoprazole. He will have repeat labs ordered tomorrow with a CBC with differential and a CPA. I have spoken with Dr. Lao who will be covering for me as I will be off this weekend and then on vacation next week. I would anticipate the patient will be ready for discharge within the next 3-5 days. JORGE ALBERTO
[2019-07-02] MEDS: PANTOPRAZOLE 40MG INJ (PROTONIX) (C9113) IV SCH ×2 (08:21→21:39)
[2019-07-02] MEDS: ENOXAPARIN 40 MG/0.4 ML SYRINGE (J1650) SC SCH (08:22)
[2019-07-02] MEDS: KETOROLAC 30 MG/ML VIAL (J1885) IV PRN ×2 (09:44→15:38)
--- NOTE | 2019-07-02 10:21 | IPNPDOC ---
Subjective General Date/Time Seen The patient was seen on 07/02/19 at 10:20. Subject Chief Complaint/History The patient is a 53-year-old male admitted with a reason for visit of Perforated Duodenal Ulcer. Current Medications Current Medications Current Medications Medications (Trade) Dose Ordered Sig/Laina Route PRN Reason Start Time Stop Time Status Last Admin Dose Admin Enoxaparin Sodium (Lovenox) 40 mg DAILY SC 07/01/19 09:00 07/02/19 08:22 Fentanyl Citrate (Sublimaze) 25 mcg Q5MP PRN IV PAIN LEVEL 5-10 06/29/19 13:45 06/29/19 14:45 DC 06/29/19 14:15 Home Med (Med Rec Complete!) ASDIRECTED XX 06/28/19 10:00 06/28/19 09:50 DC Hydromorphone HCl (Dilaudid) 0.2 mg Q5MP PRN IV PAIN LEVEL 4-7 06/29/19 13:45 06/29/19 14:45 DC Ketorolac Tromethamine (ToRADol) 30 mg Q6H PRN IV PAIN 06/29/19 03:00 07/04/19 02:59 07/02/19 09:44 Lactated Ringer's 1,000 ml @ 75 mls/hr [id number] IV 06/30/19 17:15 07/01/19 23:30 Lactated Ringer's 1,000 ml @ 100 mls/hr Q10H IV 06/29/19 13:45 06/29/19 14:45 DC 06/29/19 13:26 Lactated Ringer's 1,000 ml @ 200 mls/hr Q5H IV 06/28/19 12:00 06/29/19 14:04 DC 06/29/19 03:39 Morphine Sulfate (Morphine Sulfate Inj) 2 mg Q2H PRN IV SEVERE PAIN (PS 8-10) 06/28/19 12:00 06/29/19 02:17 DC 06/29/19 00:43 Morphine Sulfate (Morphine Sulfate Inj) 4 mg Q2HP PRN IV SEVERE PAIN (PS 8-10) 06/29/19 02:15 07/02/19 08:22 Ondansetron HCl (ZOFRAN INJection) 4 mg Q4HP PRN IV NAUSEA OR VOMITING 06/29/19 13:45 06/29/19 14:04 DC Ondansetron HCl (ZOFRAN INJection) 4 mg Q6HP PRN IV NAUSEA OR VOMITING 06/28/19 12:00 06/28/19 19:54 Oxycodone/ Acetaminophen (Percocet 5mg/ 325mg Tablet) 1 tab ASDIRECTED PRN PO PAIN LEVEL 1-4 06/29/19 13:45 06/29/19 14:04 DC Oxycodone/ Acetaminophen (Percocet 5mg/ 325mg Tablet) 1 tab Q4HP PRN PO MODERATE/SEVERE PAIN (PS 5-10) 07/01/19 15:45 07/01/19 21:56 Pantoprazole Sodium (Protonix) 40 mg BID IV 06/28/19 13:00 07/02/19 08:21 Pantoprazole Sodium 40 mg/ Dextrose 50 ml @ 10 mls/hr Q5H IV 06/28/19 09:30 06/28/19 12:30 DC 06/28/19 09:55 Piperacillin Sod/ Tazobactam Sod 3.375 gm/Dextrose 50 ml @ 50 mls/hr Q6H IV 06/28/19 16:00 07/02/19 09:44 Allergies Coded Allergies: promethazine (Verified Allergy, Unknown, 06/16/19) sulfamethoxazole (Verified Adverse Reaction, Mild, nausea, 06/28/19) trimethoprim (Verified Adverse Reaction, Mild, nausea, 06/28/19) Objective Physical Examination Examination GENERAL APPEARANCE:[Patient seen, laying in bed, awake, alert, and oriented. Comfortable, in no acute distress]. SKIN: [Warm and moist]. HEENT: [Normocephalic, atraumatic. [place] palpebral conjunctiva, anicteric sclerae. Lips and mucosa appear moist]. NECK: [Supple, no thyromegaly. No obvious jugular venous distention]. LUNGS: [Clear to auscultation bilaterally. No wheezing appreciated]. HEART: [No chest wall abnormalities. Regular rate and rhythm with no murmurs appreciated]. ABDOMEN: Abdomen is , soft, . [No hepatosplenomegaly. No umbilical or groin herniations, nondistended. No noticeable rebound or guarding. No grimacing with palpation. No rebound tenderness. No masses appreciated]. EXTREMITIES: [Extremities have no deformities. No edema identified]. Vital Signs Vital Signs Date Time Temp Pulse Resp B/P (MAP) Pulse Ox O2 Delivery O2 Flow Rate FiO2 07/02/19 10:00 97.5 72 19 134/80 (98) 97 Room Air 06/29/19 17:37 2.0 I&Os I&O- Last 24 Hours up to 6 AM 07/02/19 05:59 Intake Total 1265 ml Output Total 710 ml Balance 555 ml Laboratory Data Labs 24H Laboratory Tests 2 07/02/19 06:07: Immature Granulocyte % (Auto) 0.5, Neutrophils (%) (Auto) 67.3H, Lymphocytes (%) (Auto) 19.8L, Monocytes (%) (Auto) 8.6H, Eosinophils (%) (Auto) 3.0, Basophils ( %) (Auto) 0.8, Neutrophils # (Auto) 4.5, Lymphocytes # (Auto) 1.3L, Monocytes # (Auto) 0.6, Eosinophils # (Auto) 0.2, Basophils # (Auto) 0.1, Nucleated Red Blood Cells % (auto) 0.0, Anion Gap 7L, Glomerular Filtration Rate > 60.0, Calcium Level 8.6, Total Bilirubin 0.8, Aspartate Amino Transf (AST/SGOT) 10, Alanine Aminotransferase (ALT/SGPT) 27, Alkaline Phosphatase 63, Total Protein 6.0L, Albumin 2.3L, Albumin/Globulin Ratio 0.62L CBC/BMP Laboratory Tests 07/02/19 06:07 Microbiology Microbiology 06/29/19 Gram Stain - Final, Complete 06/29/19 Body Fluid Culture - Final, Complete 06/29/19 Anaerobic Culture - Final, Complete Impression POD3 exlap repair of perforated duodenal diverticulum, lateral dudenotomy UGIS not officially read but no clear leakage. Plan / VTE VTE Prophylaxis Ordered?: Yes TO FITZGERALD MD Jul 02, 2019 10:21
[2019-07-02] MEDS: LR 1,000 ML IV SCH (15:11)
[2019-07-03 02:00] VITALS: BP 146/88
[2019-07-03] MEDS: MORPHINE 4 MG/ML 1ML VIAL/SYRINGE (J2270) IV PRN ×2 (02:32→07:41)
[2019-07-03] MEDS: PIPERACILLIN/TAZOBACTAM SOD 3.375 GM in D5W MINI-BAG PLUS 50 ML IV SCH ×2 (04:52→10:05)
[2019-07-03 06:00] VITALS: BP 160/82
[2019-07-03] MEDS: KETOROLAC 30 MG/ML VIAL (J1885) IV PRN ×2 (06:10→14:53)
[2019-07-03] MEDS: LR 1,000 ML IV SCH (06:10)
[2019-07-03] MEDS: PANTOPRAZOLE 40MG INJ (PROTONIX) (C9113) IV SCH (08:15)
[2019-07-03] MEDS: ENOXAPARIN 40 MG/0.4 ML SYRINGE (J1650) SC SCH (08:15)
[2019-07-03 10:00] VITALS: BP 134/86
--- NOTE | 2019-07-03 10:50 | IPNPDOC ---
Text Note Date of Service The patient was seen on 07/03/19. NOTE Patient reports he is feeling better. He tolerated clears. He has some reflux type complaints last night - a slight twinge of pain on his left anterior chest that went away with burping. He denies nausea. Nurse reports he has not had a BM. He is ambulating the hallways. He still reports discomfort on his midline incision and where the drain comes out of. On exam, he is seen sitting on the chair very comfortable. Lung sounds are clear. Heart rate is roughly in the 80s, regular rhythm. His dressings were removed and shows a dry intact midline incision with mary jo, no drainage. Minimal tenderness around drain and incisiion site. No extremity edema. Impression/Plans: POD4 exlap repair of perforated duodenal diverticulum, lateral dudenotomy UGIS not officially read but no clear leakage. will advance to soft diet. I spoke to him about using percocets instead of morphine. He feels he need something to help him sleep which is why he prefers the morphine. Ill give him some sleep aid instead. will convert to protonix to po. I anticipate probably will be ready to go home thursday earliest. continue abx for now, will switch later on to PO VS,Fishbone, I+O VS, Fishbone, I+O Vital Signs Date Time Temp Pulse Resp B/P (MAP) Pulse Ox O2 Delivery O2 Flow Rate FiO2 07/03/19 10:00 97.7 75 17 134/86 (102) 95 Room Air 06/29/19 17:37 2.0 I&O- Last 24 Hours up to 6 AM 07/03/19 06:00 Intake Total 3000 ml Output Total 1095 ml Balance 1905 ml TO FITZGERALD MD Jul 03, 2019 10:50
[2019-07-03] MEDS: SENOKOT S TAB PO SCH ×2 (11:07→21:00)
[2019-07-03 14:00] VITALS: BP 134/86
[2019-07-03 18:00] VITALS: BP 158/89
[2019-07-03] MEDS: PERCOCET 5MG/325MG TAB PO PRN (18:30)
[2019-07-03] MEDS: AUGMENTIN 875 MG TAB PO SCH (21:26)
[2019-07-03] MEDS: PANTOPRAZOLE 20 MG TAB PO SCH (21:26)
[2019-07-03 22:00] VITALS: BP 137/83
[2019-07-04 02:00] VITALS: BP 143/83
[2019-07-04] MEDS: PERCOCET 5MG/325MG TAB PO PRN ×4 (02:36→18:32)
[2019-07-04 06:00] VITALS: BP 143/81
[2019-07-04] MEDS: MORPHINE 4 MG/ML 1ML VIAL/SYRINGE (J2270) IV PRN (06:48)
[2019-07-04] MEDS: PANTOPRAZOLE 20 MG TAB PO SCH ×2 (08:04→20:04)
[2019-07-04] MEDS: AUGMENTIN 875 MG TAB PO SCH ×2 (08:04→20:04)
[2019-07-04] MEDS: ENOXAPARIN 40 MG/0.4 ML SYRINGE (J1650) SC SCH (08:04)
[2019-07-04] MEDS: SENOKOT S TAB PO SCH ×2 (08:04→20:04)
--- NOTE | 2019-07-04 09:03 | REP ---
Examination Requested: Upper G.I. Series With KUB Reason For Exam: Limited upper GI to assess for duodenal leak Upper GI water-soluble Contrast The procedure was performed by SUNNY Whiteside, under the direct supervision of Dr. Limon. The images were reviewed with Dr. Limon. The snow removing supervisor film shows multiple surgical mary jo as well as a post surgical drain. A approximately 50 ml of a mixture of 50/50 Gastrografin and water was given in the anterior right oblique position. The oral and pharyngeal stages of deglutition were unremarkable. Esophageal transport is efficient. The stomach marquez are normally outlined. The duodenal marquez are normally outlined. The visualized portion of the proximal small bowel appears normal in course and caliber. No duodenal postsurgical leak is identified. Impression: 1. No duodenal postsurgical leak identified. 0.6 minutes of fluoroscopy time was utilized for this procedure. Some fluoroscopic images are performed with last image hold technology. These images require no additional radiation. Reviewed by SUNNY Valladares 07/01/2019 05:38 P Electronically Signed by Ashutosh Limon MD 07/04/2019 08:55 A
[2019-07-04 10:00] VITALS: BP 140/80
[2019-07-04 14:00] VITALS: BP 140/71
--- NOTE | 2019-07-04 16:21 | RO ---
DATE OF PROCEDURE: 06/29/2019 PREOPERATIVE DIAGNOSIS: Perforated duodenal ulcer second portion of the duodenum. POSTOPERATIVE DIAGNOSIS: Perforated duodenal diverticulum. PROCEDURE PERFORMED: Exploratory laparotomy with Lynette maneuver of the duodenum, identification and excision of a perforated duodenal diverticulum of the second portion of the duodenum, and exploration of the duodenum via an anterolateral duodenotomy. SURGEON: Dr. Viveros ANESTHESIA: General. INDICATIONS FOR THE PROCEDURE: Patient is a 53-year-old man who presented to the emergency department on the morning of 06/28/2019 with fairly sudden onset of severe pain in the right midabdomen radiating to the right lower quadrant and flank. A CT scan showed a few small air bubbles contained in the soft tissues adjacent to the second portion of the duodenum felt to be consistent with a contained perforation of a duodenal ulcer. He was started on antibiotics and Protonix. He was kept nothing by mouth. Repeat CT and labs later in the day showed that his white count had increased somewhat but his electrolytes remained normal. A repeat CT showed a very slight increase in the amount of anthony duodenal air still with no evidence of free perforation. On the morning of 06/29/2019, he continued to complain of significant pain. He did not have evidence for peritonitis, but he did have increased tenderness and a decision was made to proceed with exploration and repair of his apparent contained perforation of a duodenal ulcer. OPERATIVE PROCEDURE: The patient was brought to the operating room and placed on the table in a supine position. He was placed under general endotracheal anesthesia. An orogastric tube was inserted by anesthesia. The patient's abdomen was prepped and draped in a sterile fashion. The abdomen was entered through an upper midline incision extending from below the xyphoid to just above the umbilicus. This was deepened through the subcutaneous tissues with the cautery and the midline fascia was divided as well with the cautery. Peritoneum was opened. There was a minimal amount of generally clear fluid identified in the upper abdomen. A single small thread of exudate was noted. Aerobic and anaerobic cultures were obtained from the small amount of fluid that was present.The liver appeared clear of any inflammatory change. There were some scattered adhesions of the omentum to the bowel inferiorly. Palpation of the stomach revealed that the tip of the nasogastric (NG) tube extended only about 3 cm into the cardia of the stomach. Subsequently, several attempts were made during the course of the procedure by anesthesia to insert the NG tube all the way into the stomach and these all failed. I extended the incision an additional 4-5 cm to slightly below the umbilicus for better exposure. A Bookwalter retractor was then obtained and utilized in opening the abdominal incision for better exposure. The distal stomach was clearly identified. The CT scan of the abdomen and pelvis was projected on the screen in the operating room and used to assist in directing the procedure. I proceeded carefully to make the a Lynette maneuver and mobilize the duodenum and the head of the pancreas. A Harmonic scalpel was used to divide the peritoneum carefully around the superior and superolateral aspects of the duodenum. Care was taken to avoid any injury to the structures of the ivone hepatis. There was some greenish-yellow staining and induration noted along the lateral aspect of the duodenum in the retroperitoneum. As the mobilization was extended inferiorly this area was opened and there was clearly some bile staining of the fibrofatty tissues of the retroperitoneum adjacent to the duodenum. A few filmy attachments of the gallbladder were divided to allow greater exposure in this area. The transverse colon was clearly identified and was retracted inferiorly. Dissection was carried inferiorly and then posteriorly around the duodenum and the head of the pancreas mobilizing this to the left. As this was accomplished the source of the bile leakage was identified and this proved to be not an ulcer but a perforated diverticulum. This was approximately 2 cm in diameter with an approximately 1 cm hole at the tip. This appeared quite thin-walled. This was dissected free from surrounding tissues. This appeared to arise on the posterior aspect of the duodenum toward the more distal aspect of the second portion of the duodenum. There was some bile drainage through this perforated diverticulum. In order to identify the relationship between the diverticulum and the bile duct, I elected to make a longitudinal duodenotomy on the anterolateral aspect of the duodenum. This was approximately 4-4.5 cm in length. A red rubber Fisher catheter was inserted through the perforated diverticulum and out through the inner aspect of the duodenum to better identify the location of the diverticulum. Identification of the ampulla of Vater was difficult given the protrusion of the duodenal mucosa but it was clear that the bile collecting in the duodenum was coming from much higher up in the duodenum. I therefore proceeded to excise the diverticulum working from the outer aspect of the duodenum. The duodenal mucosa was then closed with a running Mendy suture of #4-0 Vicryl. This was reduced slightly into the wall of the duodenum and the seromuscular layer of the duodenum was then approximated over this with interrupted simple sutures of #3-0 Vicryl. I then proceeded to close the longitudinal duodenotomy. This was closed longitudinally with two running [place] sutures of #3-0 Vicryl. One was begun at each end of the duodenotomy and these met in the middle. An additional layer of interrupted simple sutures of #3-0 Vicryl was placed over this. This appeared to give an excellent closure of the duodenotomy without appearing to compromise the lumen significantly. The abdomen was copiously irrigated with warm saline and this was then removed. A 19-Maori Haile drain was inserted through a stab wound in the right upper quadrant and directed just lateral and inferior to the gallbladder through the subhepatic space and then looping superiorly around the lateral aspect of the duodenotomy and duodenal mobilization to come up along the area of the pylorus. The peritoneum in the upper two-thirds of the incision was then approximated with a running suture of #1-0 chromic. The fascia through the length of the incision was approximated with interrupted simple sutures of #1 Vicryl. The wound was irrigated and hemostasis was ensured with cautery. The skin incision was closed with skin mary jo. The drain was sutured to the skin with a #2-0 silk and dressed with a chlorhexidine gluconate OpSite. The drain was connected to a Regulo-Colmenares bulb. A bulky dressing was placed over the midline incision. The NG tube had not been accomplished and I elected not to place a gastrostomy tube to decompress the stomach. I did note that the bladder appeared quite distended during the course of irrigating the abdomen. Therefore, the patient was straight catheterized for approximately 550-600 mL of urine. He was then awakened in the operating room, extubated and moved to the recovery room in stable condition. JORGE ALBERTO
[2019-07-04 18:00] VITALS: BP 137/80
[2019-07-04 22:00] VITALS: BP 135/87
[2019-07-05] MEDS: PERCOCET 5MG/325MG TAB PO PRN ×2 (01:12→07:46)
[2019-07-05 02:00] VITALS: BP 133/87
[2019-07-05 06:00] VITALS: BP 142/87
[2019-07-05] MEDS: ENOXAPARIN 40 MG/0.4 ML SYRINGE (J1650) SC SCH ×2 (09:00→09:49)
[2019-07-05] MEDS: PANTOPRAZOLE 20 MG TAB PO SCH (09:49)
[2019-07-05] MEDS: AUGMENTIN 875 MG TAB PO SCH (09:49)
[2019-07-05] MEDS: SENOKOT S TAB PO SCH (09:49)
[2019-07-05 10:00] VITALS: BP 135/84
[2019-07-05] MEDS ORDERED: PERCOCET PO (11:43)
[2019-07-05] MEDS ORDERED: AMOX875T2 PO (11:43)
[2019-07-05] MEDS ORDERED: PANT20TA2 PO (11:43)
== END 2019-07-05 12:43 | disposition home or self-care (01) | DRG 328 ==
LOC: M ED 07:41 → M ED INP 11:56 → M MS4PR 15:10 → M MSPAV 06-30 14:31
PROVIDERS: ADMIT Surgery; ATTEND Surgery
PROC: 0DB90ZZ Excision of Duodenum, Open Approach (ICD-10-PCS; principal; 2019-06-29 09:00)
DX: K26.1 Acute duodenal ulcer with perforation (principal); Z88.8 Allergy status to other drugs, medicaments and biological substances; Z88.2 Allergy status to sulfonamides

== ENCOUNTER 2020-03-15 09:34 | Emergency (ER) | payer MEDICARE, MEDICAID ==
[~2020-03-15] VITALS: Ht 182.9 cm; Wt 78.9 kg
[~2020-03-15 09:34] MED LIST changes: +AMOX875T2 PO; +CLIN150C14 PO; +HYDR-3713 PO; +PANT20TA6 PO; +PERCOCET PO
[2020-03-15] MEDS ORDERED: NS 1,000 ML IV ONE (10:15)
[2020-03-15] MEDS ORDERED: PANTOPRAZOLE 40MG VIAL (C9113 PER 1) IV ONE (10:15)
[2020-03-15 10:57] LABS: BASO # 0.1 10^3/uL (0.0-0.2); BASO % 0.7 % (0.0-1.0); EOS # 0.1 10^3/uL (0.0-0.5); HEMATOCRIT 44.2 % (42.0-52.0); HEMOGLOBIN 14.5 g/dl (13.5-17.5); LYMPH # 1.9 10^3/uL (1.5-5.0); LYMPH % 27.4 % (24.0-44.0); MEAN CORPUSCULAR HEMOGLOBIN 29.5 pg (27.0-33.0); MEAN CORPUSCULAR HGB CONC 32.8 g/dl (32.0-36.5); MONO # 0.4 10^3/uL (0.0-0.8); MONO % 5.5 % (0.0-5.0); NEUTROPHILS # 4.5 10^3/uL (1.5-8.5); NEUTROPHILS % 65.1 % (36.0-66.0); PLATELET COUNT, AUTOMATED 252 10^3/uL (150-450); RED BLOOD COUNT 4.91 10^6/uL (4.30-6.10); WHITE BLOOD COUNT 6.9 10^3/uL (4.0-10.0)
[2020-03-15 11:17] LABS: ALBUMIN 3.7 GM/DL (3.2-5.2); ALT/SGPT 21 U/L (12-78); BILIRUBIN,DIRECT 0.1 MG/DL (0.0-0.2); BILIRUBIN,TOTAL 0.4 MG/DL (0.2-1.0); BLOOD UREA NITROGEN 12 MG/DL (7-18); CALCIUM LEVEL 9.1 MG/DL (8.5-10.1); CARBON DIOXIDE LEVEL 27 MEQ/L (21-32); CHLORIDE LEVEL 107 MEQ/L (98-107); CK-MB VALUE MASS < 1.0 NG/ML (<3.6); CPK CREATINE PHOSPHOKINASE 88 U/L (39-308); CREATININE FOR GFR 1.22 MG/DL (0.70-1.30); GLOMERULAR FILTRATION RATE > 60.0 (>56); GLUCOSE, FASTING 95 MG/DL (70-100); LIPASE 43 U/L (73-393); MB/CK RELATIVE INDEX 1.14 (< OR =4); POTASSIUM SERUM 4.1 MEQ/L (3.5-5.1); SODIUM LEVEL 140 MEQ/L (136-145); TOTAL PROTEIN 6.5 GM/DL (6.4-8.2); TROPONIN I < 0.02 NG/ML (< 0.10)
[2020-03-15] MEDS ORDERED: ISOVUE-370 76% 100ML VIAL As Ordered ONE (11:56)
--- NOTE | 2020-03-15 12:28 | REPVR ---
PROCEDURE INFORMATION: Exam: CT Abdomen And Pelvis With Contrast Exam date and time: 03/15/2020 12:02 PM Age: 54 years old Clinical indication: Abdominal pain; Epigastric; Additional info: Epigastric pain, HX of duodenal ulcer/perf TECHNIQUE: Imaging protocol: Computed tomography of the abdomen and pelvis with intravenous contrast. Radiation optimization: All CT scans at this facility use at least one of these dose optimization techniques: automated exposure control; mA and/or kV adjustment per patient size (includes targeted exams where dose is matched to clinical indication); or iterative reconstruction. Contrast material: ISOVUE 370; Contrast volume: 100 ml; Contrast route: INTRAVENOUS (IV); COMPARISON: CT ABD PELVIS W/O CONTRAST 06/28/2019 8:45 AM FINDINGS: Lungs: Interstitial prominence and trace dependent airspace disease. Liver: 6 mm hepatic cyst. Gallbladder and bile ducts: No cholelithiasis or biliary ductal dilatation. Pancreas: No pancreatic mass or ductal dilatation. Spleen: No splenomegaly. Adrenals: Unremarkable adrenals. Kidneys and ureters: Normal renal morphology. No hydronephrosis. Stomach and bowel: Wall thickening in the nondistended stomach. Mild small bowel dilatation and air-fluid levels, without a focal transition zone. Prominent stool and diverticula. Appendix: No acute appendicitis. Intraperitoneal space: No free fluid. Vasculature: Vascular calcification. No abdominal aortic aneurysm. Lymph nodes: Subcentimeter lymph nodes. Bladder: Circumferential wall thickening in the nondistended bladder with a nonspecific 9 mm nodular lesion of soft tissue attenuation in the posterior bladder midline (series 201: Image 121). Reproductive: Mildly enlarged prostate. Bones/joints: Schmorl's nodes and degenerative change . IMPRESSION: 1. Circumferential wall thickening in the nondistended bladder with a nonspecific 9 mm nodular lesion of soft tissue attenuation in the posterior bladder midline. 2. Wall thickening in the nondistended stomach. 3. Additional findings as described above. Electronically signed by: Oneil Santiago On 03/15/2020 12:27:58 PM
[2020-03-15] MEDS ORDERED: PROT1TAB2 PO (13:14)
[2020-03-15] MEDS ORDERED: CARA1TAB6 PO (13:14)
[2020-03-15 13:51] VITALS: BP 122/73
--- NOTE | 2020-03-17 15:25 | ED PDOC ---
Post-Departure Follow-Up dr kwan and dr claudio faxed formal report of ct abd/p for fu Colin Solorzano MD Mar 17, 2020 15:25
--- NOTE | 2020-03-26 12:30 | ECGEPIP ---
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 Order Number: [id number] Reading MD: Katarzyna Valdez Measurements Intervals [place] Rate: 70 P: 63 NV: 162 QRS: -62 QRSD: 102 T: 63 QT: 394 QTc: 427 Interpretive Statements SINUS RHYTHM LOW QRS VOLTAGE IN EXTREMITY LEADS LEFT ANTERIOR FASCICULAR BLOCK INFERIOR MYOCARDIAL INFARCTION, PROBABLY OLD ABNORMAL ECG SEE SCANNED DOWNTIME REPORT
[2020-04-23] MEDS ORDERED: OXYB5TAB10 (13:52)
== END 2020-03-15 13:52 | disposition home or self-care (01) ==
LOC: M ED 09:34
DX: K29.00 Acute gastritis without bleeding (principal); R91.8 Other nonspecific abnormal finding of lung field; Z79.899 Other long term (current) drug therapy; Z88.8 Allergy status to other drugs, medicaments and biological substances
CPT/HCPCS: 74177; 80048; 80076; 81001; 82550; 82553; 83605; 83690; 84484; 85025; 93005; 96361; 96374; 99284; C9113; Q9967

== ENCOUNTER → 2020-03-22 | Outpatient (REF) | payer MEDICAID, MEDICARE ==
[~2020-03-22] MED LIST changes: +CARA1TAB6 PO; +OXYB5TAB10; +PROT1TAB2 PO
[2020-03-22 18:47] LABS: APPEARANCE, URINE CLEAR (CLEAR); BACTERIA, URINE AUTO NEGATIVE (NEGATIVE); BILIRUBIN, URINE AUTO NEGATIVE (NEGATIVE); BLOOD, URINE BLOOD NEGATIVE (NEGATIVE); COLOR, URINE STRAW (YELLOW); GLUCOSE, URINE (UA) AUTO NEGATIVE (NEGATIVE); KETONE, URINE AUTO NEGATIVE (NEGATIVE); LEUKOCYTE ESTERASE, URINE AUTO NEGATIVE (NEGATIVE); NITRITE, URINE AUTO NEGATIVE (NEGATIVE); PROTEIN, URINE AUTO NEGATIVE (NEGATIVE); RBC, URINE AUTO 0 /HPF (0-3); SPECIFIC GRAVITY URINE AUTO 1.003 (1.002-1.035); SQUAMOUS EPITHELIAL CELL UR AU 0 /HPF (0-6); UROBILINOGEN, URINE AUTO 0.2 mg/dL (0.0-2.0); WBC, URINE AUTO 0 /HPF (0-3)
== END ==
LOC: M SMT 17:02
PROVIDERS: ATTEND Nurse Practitioner Women's Health
DX: N32.9 Bladder disorder, unspecified (principal); Z79.899 Other long term (current) drug therapy

== ENCOUNTER → 2020-04-02 | Outpatient (CLI) | payer MEDICARE, MEDICAID | LOC: M WUC 13:38 | PROVIDERS: ATTEND Urology | DX: Z12.5 Encounter for screening for malignant neoplasm of prostate (principal) | CPT/HCPCS: 36415; G0103 ==

== ENCOUNTER → 2020-04-26 | Outpatient (CLI) | payer MEDICARE, MEDICAID, OTHER | LOC: M LABSMTC 11:06 | PROVIDERS: ATTEND Anesthesiology | DX: Z01.812 Encounter for preprocedural laboratory examination (principal); Z20.828 Contact with and (suspected) exposure to other viral communicable diseases | CPT/HCPCS: C9803; U0003 ==

== ENCOUNTER 2020-05-01 13:02 | Day surgery (SDC) | payer MEDICARE ==
[~2020-05-01] VITALS: Ht 182.9 cm; Wt 78.9 kg
[~2020-05-01 13:02] MED LIST changes: +NS 1,000 ML IV ONE
[2020-05-01] MEDS ORDERED: LIDOCAINE 2% 100MG/5ML SDV (FOR ANES.) As Ordered ONE (13:46)
[2020-05-01] MEDS ORDERED: fentaNYL 100 MCG/2 ML INJECTION (J3010) As Ordered ONE (13:46)
[2020-05-01] MEDS ORDERED: propofoL 500 MG/50 ML VIAL As Ordered ONE (13:47)
--- NOTE | 2020-05-01 14:31 | ROOR ---
Patient Name: Sudhir Phillips Procedure Date: 05/01/2020 1:52 PM Date of : 1965 Age: 54 Room: [facility] Gender: Male Note Status: Finalized Procedure: Upper GI endoscopy Indications: Epigastric abdominal pain, Patient had repair of perforated duodenal diverticulum Jun 2019 Providers: Bill Viveros MD Referring MD: 1. No Referring Physician 1. No Referring Physician, Admin. Requesting Provider: Medicines: Monitored Anesthesia Care Complications: No immediate complications. Procedure: Pre-Anesthesia Assessment: - Prior to the procedure, a History and Physical was performed, and patient medications and allergies were reviewed. The patient is competent. The risks and benefits of the procedure and the sedation options and risks were discussed with the patient. All questions were answered and informed consent was obtained. Patient identification and proposed procedure were verified by the physician, the nurse and the trailer sections assembler in the procedure room. Mental Status Examination: alert and oriented. Airway Examination: normal oropharyngeal airway and neck mobility. Prophylactic Antibiotics: The patient does not require prophylactic antibiotics. Prior Anticoagulants: The patient has taken no previous anticoagulant or antiplatelet agents. ASA Grade Assessment: II - A patient with mild systemic disease. After reviewing the risks and benefits, the patient was deemed in satisfactory condition to undergo the procedure. The anesthesia plan was to use monitored anesthesia care (MAC). Immediately prior to administration of medications, the patient was re-assessed for adequacy to receive sedatives. The heart rate, respiratory rate, oxygen saturations, blood pressure, adequacy of pulmonary ventilation, and response to care were monitored throughout the procedure. The physical status of the patient was re-assessed after the procedure. The Endoscope was introduced through the mouth, and advanced to the third part of duodenum. The upper GI endoscopy was accomplished without difficulty. The patient tolerated the procedure well. Findings: The examined esophagus was normal. The entire examined stomach was normal. Scarring was noted in the 2nd portion of the duoenum. A longitudinal scar was noted. The duodenal bulb was normal. This was biopsied with a cold forceps for histology and Helicobacter pylori testing. Impression: - Normal esophagus. - Normal stomach. - Normal duodenal bulb. Biopsied. Recommendation: - Discharge patient to home. - Resume previous diet. - Return to my office in 2 weeks. Bill Viveros MD Bill Viveros MD 05/01/2020 2:30:54 PM Electronically signed by Bill Viveros MD Number of Addenda: 0 Note Initiated On: 05/01/2020 1:52 PM Estimated Blood Loss: Estimated blood loss was minimal.
[2020-05-01 14:40] VITALS: BP 112/78
== END 2020-05-01 14:56 | disposition home or self-care (01) ==
LOC: M OPP 13:02
PROVIDERS: ATTEND Surgery
DX: K31.9 Disease of stomach and duodenum, unspecified (principal); R10.13 Epigastric pain; Z79.899 Other long term (current) drug therapy; Z88.8 Allergy status to other drugs, medicaments and biological substances; Z87.19 Personal history of other diseases of the digestive system; F17.210 Nicotine dependence, cigarettes, uncomplicated
CPT/HCPCS: 43239; 88305; 88342; J3010

== ENCOUNTER → 2022-06-19 | Outpatient (CLI) | payer MEDICARE ==
[~2022-06-19] MED LIST changes: -CLIN150C14 PO; +CLIN150C17 PO; -NS 1,000 ML IV ONE
[2022-06-19 13:17] LABS: HEMATOCRIT 43.7 % (42.0-52.0); HEMOGLOBIN 14.2 g/dl (13.5-17.5); MEAN CORPUSCULAR HEMOGLOBIN 29.5 pg (27.0-33.0); MEAN CORPUSCULAR HGB CONC 32.5 g/dl (32.0-36.5); MEAN CORPUSCULAR VOLUME 90.7 fl (80.0-96.0); PLATELET COUNT, AUTOMATED 251 10^3/uL (150-450); RED BLOOD COUNT 4.82 10^6/uL (4.30-6.10); WHITE BLOOD COUNT 5.4 10^3/uL (4.0-10.0)
[2022-06-19 13:47] LABS: PROSTATIC SPECIFIC AG MONITOR 0.99 NG/ML (< 4.00)
[2022-06-19 13:49] LABS: ALBUMIN 3.9 G/DL (3.2-5.2); ALKALINE PHOSPHATASE 50 U/L (46-116); ALT/SGPT 13 U/L (7.0-40); AST/SGOT 14 U/L (<34); BILIRUBIN,TOTAL 0.5 MG/DL (0.3-1.2); BLOOD UREA NITROGEN 13 MG/DL (9-23); CALCIUM LEVEL 9.3 MG/DL (8.5-10.1); CARBON DIOXIDE LEVEL 29 MMOL/L (20-31); CHLORIDE LEVEL 107 MMOL/L (98-107); CHOLESTEROL LEVEL 201 MG/DL (<200); CHOLESTEROL RISK RATIO 4.17 (<5); CREATININE FOR GFR 1.04 MG/DL (0.70-1.30); GLOMERULAR FILTRATION RATE > 60.0 (>56); GLUCOSE, FASTING 97 MG/DL (60-100); HDL CHOLESTEROL 48.1 MG/DL (>40); LDL CHOLESTEROL 140.5 MG/DL (<100); NON-HDL-C 153 MG/DL; POTASSIUM SERUM 4.5 MMOL/L (3.5-5.1); SODIUM LEVEL 140 MMOL/L (136-145); TOTAL PROTEIN 6.3 G/DL (5.7-8.2); TRIGLYCERIDES LEVEL 62 MG/DL (<150)
[2022-06-19 13:51] LABS: TESTOSTERONE 633 NG/DL (241-827); THYROID STIMULATING HORMONE 0.769 uIU/ML (0.55-4.78)
== END ==
LOC: M RAD 12:22
PROVIDERS: ATTEND Family Medicine
DX: I10 Essential (primary) hypertension (principal); J44.9 Chronic obstructive pulmonary disease, unspecified; M54.30 Sciatica, unspecified side; R53.83 Other fatigue; M47.816 Spondylosis without myelopathy or radiculopathy, lumbar region

== ENCOUNTER 2022-09-11 14:25 | Emergency (ER) | payer MEDICARE, MEDICAID ==
[~2022-09-11] VITALS: Ht 182.9 cm; Wt 81.8 kg
[2022-09-11] MEDS ORDERED: IPRATROPIUM 0.5MG/ALBUTEROL 2.5MG INH SOL UD 3ML (DUONEB) NEB ONE (15:00)
[2022-09-11] MEDS ORDERED: ALBUTEROL SULFATE 2.5MG/0.5ML INH NEB SOLN INH ONE (15:00)
[2022-09-11 15:14] LABS: ABG BASE EXCESS 2.5 (-2.0-2.0); ABG HCO3 19.7 MEQ/L (22.0-26.0); ABG PARTIAL PRESSURE O2 121.1 mmHg (75.0-100.0); ABG STANDARD HCO3 26.8 MEQ/L (22.0-26.0); ABG TOTAL CO2 20.2 MEQ/L (22.0-29.0)
[2022-09-11 15:17] LABS: ABG PARTIAL PRESSURE CO2 17.5 mmHg (35.0-45.0); ABG pH (ARTERIAL) 7.669 UNITS (7.350-7.450)
[2022-09-11 15:22] LABS: BASO # 0.1 10^3/uL (0.0-0.2); BASO % 0.8 % (0.0-1.0); EOS # 0.1 10^3/uL (0.0-0.5); EOS % 0.9 % (0.0-3.0); HEMATOCRIT 49.3 % (42.0-52.0); HEMOGLOBIN 16.7 g/dl (13.5-17.5); LYMPH # 3.6 10^3/uL (1.5-5.0); LYMPH % 35.8 % (24.0-44.0); MEAN CORPUSCULAR HEMOGLOBIN 29.3 pg (27.0-33.0); MEAN CORPUSCULAR HGB CONC 33.9 g/dl (32.0-36.5); MEAN CORPUSCULAR VOLUME 86.6 fl (80.0-96.0); MONO # 0.7 10^3/uL (0.0-0.8); MONO % 6.5 % (2.0-8.0); NEUTROPHILS # 5.7 10^3/uL (1.5-8.5); NEUTROPHILS % 55.5 % (36.0-66.0); PLATELET COUNT, AUTOMATED 380 10^3/uL (150-450); RED BLOOD COUNT 5.69 10^6/uL (4.30-6.10); WHITE BLOOD COUNT 10.2 10^3/uL (4.0-10.0)
[2022-09-11 15:34] LABS: INR 0.9; PROTHROMBIN TIME 12.3 SECONDS (12.5-14.5)
[2022-09-11 15:42] LABS: CPK CREATINE PHOSPHOKINASE 230 U/L (46-171)
[2022-09-11 15:46] LABS: ALBUMIN 4.1 G/DL (3.2-5.2); ALKALINE PHOSPHATASE 61 U/L (46-116); ALT/SGPT 25 U/L (7.0-40); AST/SGOT 20 U/L (<34); BILIRUBIN,DIRECT 0.1 MG/DL (<0.4); BILIRUBIN,TOTAL 0.5 MG/DL (0.3-1.2); BLOOD UREA NITROGEN 15 MG/DL (9-23); CALCIUM LEVEL 9.6 MG/DL (8.5-10.1); CARBON DIOXIDE LEVEL 24 MMOL/L (20-31); CHLORIDE LEVEL 105 MMOL/L (98-107); CK-MB VALUE MASS < 1.0 NG/ML (<3.6); CREATININE FOR GFR 1.09 MG/DL (0.70-1.30); GLOMERULAR FILTRATION RATE > 60.0 (>56); GLUCOSE, FASTING 108 MG/DL (60-100); MB/CK RELATIVE INDEX 0.43 (< OR =4); POTASSIUM SERUM 4.1 MMOL/L (3.5-5.1); SODIUM LEVEL 139 MMOL/L (136-145); THYROID STIMULATING HORMONE 1.597 uIU/ML (0.55-4.78); THYROXINE (T4) 13.8 UG/DL (4.5-10.9); TOTAL PROTEIN 6.8 G/DL (5.7-8.2)
[2022-09-11] MEDS ORDERED: ISOVUE-370 76% 100ML VIAL As Ordered ONE (16:30)
[2022-09-11] MEDS ORDERED: LORazepam 2 MG/ML 1ML VIAL IV STA (18:34)
[2022-09-11 18:48] LABS: OSMOLALITY SERUM 291 MOSM/KG (275-295)
[2022-09-11 19:00] VITALS: BP 118/86
== END 2022-09-11 20:59 | disposition home or self-care (01) ==
LOC: M ED 14:25
DX: R06.4 Hyperventilation (principal); J44.9 Chronic obstructive pulmonary disease, unspecified; R56.9 Unspecified convulsions; Z86.73 Personal history of transient ischemic attack (TIA), and cerebral infarction without residual deficits; F17.200 Nicotine dependence, unspecified, uncomplicated
CPT/HCPCS: 36600; 71045; 71275; 80048; 80076; 82550; 82553; 82803; 83605; 83880; 83930; 84436; 84443; 84484; 85025; 85610; 87040; 87486; 87581; 87633; 87798; 93005; 93041; 94640; 94760; 96374; 99284; J2060; Q9967

== ENCOUNTER → 2022-11-25 | Outpatient (CLI) | payer MEDICARE, MEDICAID | LOC: M RAD 12:15 | PROVIDERS: ATTEND Family Medicine | DX: M19.90 Unspecified osteoarthritis, unspecified site (principal); M54.30 Sciatica, unspecified side ==

== ENCOUNTER → 2022-12-04 | Outpatient (CLI) | payer MEDICARE, MEDICAID ==
[2022-12-04 12:33] LABS: HEMATOCRIT 45.1 % (42.0-52.0); MEAN CORPUSCULAR HEMOGLOBIN 29.8 pg (27.0-33.0); MEAN CORPUSCULAR HGB CONC 33.3 g/dl (32.0-36.5); MEAN CORPUSCULAR VOLUME 89.5 fl (80.0-96.0); PLATELET COUNT, AUTOMATED 290 10^3/uL (150-450); RED BLOOD COUNT 5.04 10^6/uL (4.30-6.10); WHITE BLOOD COUNT 5.6 10^3/uL (4.0-10.0)
[2022-12-04 12:51] LABS: PROSTATIC SPECIFIC AG MONITOR 2.22 NG/ML (< 4.00)
[2022-12-04 12:53] LABS: ALKALINE PHOSPHATASE 62 U/L (46-116); ALT/SGPT 15 U/L (7.0-40); AST/SGOT 13 U/L (<34); BILIRUBIN,TOTAL 0.3 MG/DL (0.3-1.2); BLOOD UREA NITROGEN 12 MG/DL (9-23); CALCIUM LEVEL 9.7 MG/DL (8.5-10.1); CARBON DIOXIDE LEVEL 27 MMOL/L (20-31); CHLORIDE LEVEL 108 MMOL/L (98-107); CHOLESTEROL LEVEL 215 MG/DL (<200); CHOLESTEROL RISK RATIO 4.12 (<5); CREATININE FOR GFR 1.16 MG/DL (0.70-1.30); GLOMERULAR FILTRATION RATE > 60.0 (>56); GLUCOSE, FASTING 101 MG/DL (60-100); HDL CHOLESTEROL 52.1 MG/DL (>40); LDL CHOLESTEROL 137.5 MG/DL (<100); NON-HDL-C 162.9 MG/DL; POTASSIUM SERUM 4.6 MMOL/L (3.5-5.1); SODIUM LEVEL 140 MMOL/L (136-145); TOTAL PROTEIN 6.5 G/DL (5.7-8.2); TRIGLYCERIDES LEVEL 127 MG/DL (<150)
[2022-12-04 12:55] LABS: THYROID STIMULATING HORMONE 1.512 uIU/ML (0.55-4.78)
[2022-12-04 13:04] LABS: HEMOGLOBIN A1c 5.3 % (4.0-6.0)
== END ==
LOC: M RAD 11:31
PROVIDERS: ATTEND Family Medicine
DX: I10 Essential (primary) hypertension (principal); R53.83 Other fatigue; J44.9 Chronic obstructive pulmonary disease, unspecified; R97.20 Elevated prostate specific antigen [PSA]

== ENCOUNTER → 2023-03-03 | Outpatient (REF) | LOC: M PLAIMG 12:24 | PROVIDERS: ATTEND Internal Medicine | DX: R52 Pain, unspecified (principal) ==

== ENCOUNTER → 2023-06-02 | Outpatient (CLI) | payer MEDICAID, MEDICARE, OTHER ==
[~2023-06-02] MED LIST changes: -OXYB5TAB10; +OXYB5TAB11
[2023-06-02 15:35] LABS: HEMATOCRIT 47.2 % (42.0-52.0); HEMOGLOBIN 15.7 g/dl (13.5-17.5); MEAN CORPUSCULAR HEMOGLOBIN 29.7 pg (27.0-33.0); MEAN CORPUSCULAR HGB CONC 33.3 g/dl (32.0-36.5); MEAN CORPUSCULAR VOLUME 89.4 fl (80.0-96.0); PLATELET COUNT, AUTOMATED 264 10^3/uL (150-450); RED BLOOD COUNT 5.28 10^6/uL (4.30-6.10); WHITE BLOOD COUNT 7.9 10^3/uL (4.0-10.0)
[2023-06-03 09:40] LABS: ALBUMIN 4.2 G/DL (3.2-5.2); ALKALINE PHOSPHATASE 62 U/L (46-116); ALT/SGPT 21 U/L (7.0-40); AST/SGOT 14 U/L (<34); BILIRUBIN,TOTAL 0.3 MG/DL (0.3-1.2); BLOOD UREA NITROGEN 12 MG/DL (9-23); CALCIUM LEVEL 9.6 MG/DL (8.5-10.1); CARBON DIOXIDE LEVEL 28 MMOL/L (20-31); CHLORIDE LEVEL 103 MMOL/L (98-107); CHOLESTEROL LEVEL 235 MG/DL (<200); CHOLESTEROL RISK RATIO 3.37 (<5); CREATININE FOR GFR 1.05 MG/DL (0.70-1.30); GLOMERULAR FILTRATION RATE > 60.0 (>56); GLUCOSE, FASTING 101 MG/DL (60-100); HDL CHOLESTEROL 69.6 MG/DL (>40); NON-HDL-C 165.4 MG/DL; POTASSIUM SERUM 4.4 MMOL/L (3.5-5.1); PROSTATIC SPECIFIC AG MONITOR 1.83 NG/ML (< 4.00); SODIUM LEVEL 138 MMOL/L (136-145); THYROID STIMULATING HORMONE 3.712 uIU/ML (0.55-4.78); TOTAL PROTEIN 6.9 G/DL (5.7-8.2); TRIGLYCERIDES LEVEL 112 MG/DL (<150)
== END ==
LOC: M LAB 14:27
PROVIDERS: ATTEND Family Medicine
DX: E07.9 Disorder of thyroid, unspecified (principal); E78.00 Pure hypercholesterolemia, unspecified; R97.20 Elevated prostate specific antigen [PSA]

== ENCOUNTER → 2023-09-22 | Outpatient (CLI) | payer OTHER, MEDICAID ==
[~2023-09-22] MED LIST changes: -OXYB5TAB11; +OXYB5TAB14
== END ==
LOC: M PLAIMG 14:21
PROVIDERS: ATTEND Internal Medicine Cardiovascular Disease
DX: R06.02 Shortness of breath (principal)

== ENCOUNTER → 2023-10-15 | Outpatient (CLI) | payer OTHER, MEDICAID | LOC: M RAD 12:33 | PROVIDERS: ATTEND Internal Medicine Pulmonary Disease | DX: Z87.891 Personal history of nicotine dependence (principal) ==

== ENCOUNTER → 2024-04-27 | Outpatient (REF) | payer OTHER, MEDICAID ==
[~2024-04-27] MED LIST changes: +ASPI81TA26 PO; +ATOR40TA75 PO; +FINA5TAB2 PO; +IBUP200T46 PO; -OXYB5TAB14; +OXYB5TAB14 PO; +PROA1AER2 IN; +TAMS1CAP17 PO; +TREL1AER PO
[2024-04-27 14:37] LABS: APPEARANCE, URINE CLEAR (CLEAR); BACTERIA, URINE AUTO NEGATIVE (NEGATIVE); BILIRUBIN, URINE AUTO NEGATIVE (NEGATIVE); BLOOD, URINE BLOOD 1+ (NEGATIVE); COLOR, URINE YELLOW (YELLOW); GLUCOSE, URINE (UA) AUTO NEGATIVE (NEGATIVE); KETONE, URINE AUTO TRACE mg/dL (NEGATIVE); LEUKOCYTE ESTERASE, URINE AUTO NEGATIVE (NEGATIVE); MUCUS, URINE SMALL (NEGATIVE); NITRITE, URINE AUTO NEGATIVE (NEGATIVE); PROTEIN, URINE AUTO NEGATIVE (NEGATIVE); RBC, URINE AUTO 2 /HPF (0-3); SPECIFIC GRAVITY URINE AUTO 1.025 (1.002-1.035); SQUAMOUS EPITHELIAL CELL UR AU 0 /HPF (0-6); UROBILINOGEN, URINE AUTO 0.2 mg/dL (0.0-2.0); WBC, URINE AUTO 2 /HPF (0-3)
== END ==
LOC: M SMT 13:06
PROVIDERS: ATTEND Physician Assistant
DX: R30.0 Dysuria (principal)

== ENCOUNTER → 2024-05-18 | Outpatient (REF) | payer OTHER, MEDICAID, MEDICARE ==
[2024-05-18 17:23] LABS: APPEARANCE, URINE CLEAR (CLEAR); BACTERIA, URINE AUTO NEGATIVE (NEGATIVE); BILIRUBIN, URINE AUTO NEGATIVE (NEGATIVE); BLOOD, URINE BLOOD 1+ (NEGATIVE); COLOR, URINE YELLOW (YELLOW); GLUCOSE, URINE (UA) AUTO NEGATIVE (NEGATIVE); KETONE, URINE AUTO NEGATIVE (NEGATIVE); LEUKOCYTE ESTERASE, URINE AUTO NEGATIVE (NEGATIVE); MUCUS, URINE SMALL (NEGATIVE); NITRITE, URINE AUTO NEGATIVE (NEGATIVE); PROTEIN, URINE AUTO NEGATIVE (NEGATIVE); RBC, URINE AUTO 4 /HPF (0-3); SPECIFIC GRAVITY URINE AUTO 1.023 (1.002-1.035); SQUAMOUS EPITHELIAL CELL UR AU 0 /HPF (0-6); UROBILINOGEN, URINE AUTO 0.2 mg/dL (0.0-2.0); WBC, URINE AUTO 9 /HPF (0-3)
== END ==
LOC: M SMT 15:08
PROVIDERS: ATTEND Urology
DX: R33.9 Retention of urine, unspecified (principal)

== ENCOUNTER → 2024-05-19 | Outpatient (CLI) | payer OTHER, MEDICAID | LOC: M LAB 15:16 | PROVIDERS: ATTEND Urology | DX: Z12.5 Encounter for screening for malignant neoplasm of prostate (principal) | CPT/HCPCS: 36415; G0103 ==

== ENCOUNTER 2024-05-20 21:39 | Emergency (ER) | payer OTHER, MEDICAID ==
[~2024-05-20] VITALS: Ht 182.9 cm; Wt 86.2 kg
[2024-05-20 21:42] VITALS: BP 153/87; TEMP 98.2; O2SAT 97
[2024-05-20] MEDS: oxyBUTYnin 5 MG TAB PO ONE (23:11)
== END 2024-05-21 00:45 | disposition left against medical advice (07) ==
LOC: M ED 21:39
DX: R30.1 Vesical tenesmus (principal); F17.210 Nicotine dependence, cigarettes, uncomplicated; Z88.2 Allergy status to sulfonamides; Z88.8 Allergy status to other drugs, medicaments and biological substances; Z79.51 Long term (current) use of inhaled steroids; Z79.2 Long term (current) use of antibiotics; Z79.1 Long term (current) use of non-steroidal anti-inflammatories (NSAID); Z79.899 Other long term (current) drug therapy

== ENCOUNTER 2024-05-31 21:28 | Emergency (ER) | payer OTHER, MEDICAID ==
[~2024-05-31] VITALS: Ht 182.9 cm; Wt 86.8 kg
[2024-05-31] MEDS: LIDOCAINE 2% 5ML JELLY UROJET TOP ONE (21:55)
[2024-05-31 22:24] VITALS: BP 116/73; TEMP 98; O2SAT 98
== END 2024-05-31 22:33 | disposition home or self-care (01) ==
LOC: M ED 21:28
DX: R33.9 Retention of urine, unspecified (principal); J44.9 Chronic obstructive pulmonary disease, unspecified; G40.909 Epilepsy, unspecified, not intractable, without status epilepticus; Z88.2 Allergy status to sulfonamides; Z88.8 Allergy status to other drugs, medicaments and biological substances; Z79.51 Long term (current) use of inhaled steroids; Z79.1 Long term (current) use of non-steroidal anti-inflammatories (NSAID); Z79.899 Other long term (current) drug therapy

== ENCOUNTER → 2024-06-24 | Outpatient (CLI) | payer OTHER, MEDICAID ==
[2024-06-24 19:42] LABS: APPEARANCE, URINE CLOUDY (CLEAR); BACTERIA, URINE AUTO 2+ (NEGATIVE); BILIRUBIN, URINE AUTO NEGATIVE (NEGATIVE); BLOOD, URINE BLOOD 3+ (NEGATIVE); COLOR, URINE YELLOW (YELLOW); GLUCOSE, URINE (UA) AUTO NEGATIVE (NEGATIVE); KETONE, URINE AUTO NEGATIVE (NEGATIVE); LEUKOCYTE ESTERASE, URINE AUTO 3+ (NEGATIVE); MUCUS, URINE SMALL (NEGATIVE); NITRITE, URINE AUTO POSITIVE (NEGATIVE); PROTEIN, URINE AUTO 2+ mg/dL (NEGATIVE); RBC, URINE AUTO TNTC /HPF (0-3); SPECIFIC GRAVITY URINE AUTO 1.019 (1.002-1.035); SQUAMOUS EPITHELIAL CELL UR AU 1 /HPF (0-6); UROBILINOGEN, URINE AUTO 0.2 mg/dL (0.0-2.0); WBC, URINE AUTO TNTC /HPF (0-3)
== END ==
LOC: M RAD 13:51
PROVIDERS: ATTEND Urology
DX: N21.0 Calculus in bladder (principal); R10.9 Unspecified abdominal pain

== ENCOUNTER → 2024-07-12 | Outpatient (REF) | payer OTHER, MEDICAID, MEDICARE | LOC: M SMT 12:41 | PROVIDERS: ATTEND Urology | DX: C61 Malignant neoplasm of prostate (principal); R97.20 Elevated prostate specific antigen [PSA]; N40.1 Benign prostatic hyperplasia with lower urinary tract symptoms; R33.8 Other retention of urine; M54.50 Low back pain, unspecified; F17.210 Nicotine dependence, cigarettes, uncomplicated; Z79.51 Long term (current) use of inhaled steroids; Z79.899 Other long term (current) drug therapy; Z88.8 Allergy status to other drugs, medicaments and biological substances ==

== ENCOUNTER 2024-08-02 13:25 | Emergency (ER) | payer OTHER, MEDICAID ==
[~2024-08-02] VITALS: Ht 182.9 cm; Wt 85.0 kg
[2024-08-02] MEDS: fentaNYL 100 MCG/2 ML INJECTION IV ONE (14:08)
[2024-08-02 14:16] LABS: BASO % 0.2 % (0.0-1.0); EOS # 0.1 10^3/uL (0.0-0.5); EOS % 0.5 % (0.0-3.0); HEMATOCRIT 40.2 % (42.0-52.0); HEMOGLOBIN 13.9 g/dl (13.5-17.5); LYMPH # 1.2 10^3/uL (1.5-5.0); LYMPH % 11.1 % (24.0-44.0); MEAN CORPUSCULAR HEMOGLOBIN 29.8 pg (27.0-33.0); MEAN CORPUSCULAR HGB CONC 34.6 g/dl (32.0-36.5); MEAN CORPUSCULAR VOLUME 86.3 fl (80.0-96.0); MONO # 0.8 10^3/uL (0.0-0.8); MONO % 7.5 % (2.0-8.0); NEUTROPHILS # 8.9 10^3/uL (1.5-8.5); NEUTROPHILS % 80.3 % (36.0-66.0); PLATELET COUNT, AUTOMATED 264 10^3/uL (150-450); RED BLOOD COUNT 4.66 10^6/uL (4.30-6.10); WHITE BLOOD COUNT 11.1 10^3/uL (4.0-10.0)
[2024-08-02 14:38] LABS: BLOOD UREA NITROGEN 14 MG/DL (9-23); CALCIUM LEVEL 9.5 MG/DL (8.3-10.6); CARBON DIOXIDE LEVEL 25 MMOL/L (20-31); CHLORIDE LEVEL 106 MMOL/L (98-107); CREATININE FOR GFR 1.03 MG/DL (0.70-1.30); GLOMERULAR FILTRATION RATE > 60.0 (>49); GLUCOSE, FASTING 118 MG/DL (74-106); POTASSIUM SERUM 3.8 MMOL/L (3.5-5.1); SODIUM LEVEL 142 MMOL/L (136-145)
[2024-08-02] MEDS: KETOROLAC 30 MG/ML 1ML VIAL IV ONE (14:53)
[2024-08-02] MEDS: ONDANSETRON 4MG 2ML VIAL IV ONE (14:53)
[2024-08-02 14:56] LABS: APPEARANCE, URINE CLOUDY (CLEAR); BACTERIA, URINE AUTO 1+ (NEGATIVE); BILIRUBIN, URINE AUTO NEGATIVE (NEGATIVE); BLOOD, URINE BLOOD 3+ (NEGATIVE); COLOR, URINE YELLOW (YELLOW); GLUCOSE, URINE (UA) AUTO NEGATIVE (NEGATIVE); KETONE, URINE AUTO TRACE mg/dL (NEGATIVE); LEUKOCYTE ESTERASE, URINE AUTO 2+ (NEGATIVE); MUCUS, URINE SMALL (NEGATIVE); NITRITE, URINE AUTO POSITIVE (NEGATIVE); PROTEIN, URINE AUTO 2+ mg/dL (NEGATIVE); RBC, URINE AUTO 172 /HPF (0-3); SPECIFIC GRAVITY URINE AUTO 1.016 (1.002-1.035); SQUAMOUS EPITHELIAL CELL UR AU 0 /HPF (0-6); UROBILINOGEN, URINE AUTO 0.2 mg/dL (0.0-2.0); WBC, URINE AUTO TNTC /HPF (0-3)
[2024-08-02] MEDS: cefTRIAXone SOD 1 GM in DEXTROSE 5% (D5W) ADV/MINI-BAG 50 ML IV ONE (17:10)
[2024-08-02] MEDS: MORPHINE 4 MG/ML 1ML VIAL IV ONE (20:50)
[2024-08-03] MEDS ORDERED: ALBU8.5H INH (00:22)
[2024-08-03] MEDS ORDERED: OXYB10TA23 PO (00:22)
[2024-08-03] MEDS ORDERED: OXYC1TAB23 PO (00:23)
[2024-08-03] MEDS ORDERED: HOME MED LIST COMPLETE! XX SCH (00:25)
[2024-08-03] MEDS: MORPHINE 4 MG/ML 1ML VIAL IV PRN (03:53)
[2024-08-03] MEDS ORDERED: IPRATROPIUM 0.5MG/ALBUTEROL 2.5MG INH SOL UD 3ML (DUONEB) NEB PRN (08:05)
[2024-08-03] MEDS ORDERED: PERCOCET 5MG/325MG TAB PO PRN (08:05)
[2024-08-03] MEDS: LevoFLOXacin 750 MG TABLET PO SCH (08:47)
[2024-08-03] MEDS: oxyBUTYnin *DITROPAN XL* 5 MG TABCR PO SCH (08:47)
[2024-08-03] MEDS ORDERED: cefTRIAXone SOD 1 GM in DEXTROSE 5% (D5W) ADV/MINI-BAG 50 ML IV SCH (09:00)
[2024-08-03 09:24] VITALS: BP 127/68; TEMP 98.1; O2SAT 97
[2024-08-03] MEDS ORDERED: ATORVASTATIN 20 MG TAB PO SCH (21:00)
[2024-08-03] MEDS ORDERED: FINASTERIDE 5MG TAB PO SCH (21:00)
== END 2024-08-03 09:30 | disposition short-term general hospital (02) ==
LOC: M ED 13:25 → EDBD 13:25 → M ED 08-03 09:30
DX: C61 Malignant neoplasm of prostate (principal); N13.8 Other obstructive and reflux uropathy; I10 Essential (primary) hypertension; N40.0 Benign prostatic hyperplasia without lower urinary tract symptoms; J44.9 Chronic obstructive pulmonary disease, unspecified; G40.909 Epilepsy, unspecified, not intractable, without status epilepticus; F17.210 Nicotine dependence, cigarettes, uncomplicated; F12.10 Cannabis abuse, uncomplicated; Z87.820 Personal history of traumatic brain injury; Z88.2 Allergy status to sulfonamides; Z88.8 Allergy status to other drugs, medicaments and biological substances; Z79.51 Long term (current) use of inhaled steroids; Z79.899 Other long term (current) drug therapy
CPT/HCPCS: 51700; 74176; 80048; 81001; 85025; 87088; 87186; 96374; 96375; 96376; 99285; J0696; J1885; J2405; J3010

== ENCOUNTER → 2024-08-15 | Outpatient (REF) | payer MEDICARE, MEDICAID ==
[~2024-08-15] MED LIST changes: +ALBU8.5H INH; +OXYB10TA23 PO; +OXYC1TAB23 PO
[2024-08-15 17:50] LABS: APPEARANCE, URINE HAZY (CLEAR); BACTERIA, URINE AUTO NEGATIVE (NEGATIVE); BILIRUBIN, URINE AUTO NEGATIVE (NEGATIVE); BLOOD, URINE BLOOD 3+ (NEGATIVE); COLOR, URINE YELLOW (YELLOW); GLUCOSE, URINE (UA) AUTO NEGATIVE (NEGATIVE); KETONE, URINE AUTO NEGATIVE (NEGATIVE); LEUKOCYTE ESTERASE, URINE AUTO 2+ (NEGATIVE); MUCUS, URINE SMALL (NEGATIVE); NITRITE, URINE AUTO NEGATIVE (NEGATIVE); PROTEIN, URINE AUTO 2+ mg/dL (NEGATIVE); RBC, URINE AUTO 33 /HPF (0-3); SPECIFIC GRAVITY URINE AUTO 1.006 (1.002-1.035); SQUAMOUS EPITHELIAL CELL UR AU 0 /HPF (0-6); UROBILINOGEN, URINE AUTO 0.2 mg/dL (0.0-2.0); WBC, URINE AUTO 52 /HPF (0-3)
== END ==
LOC: M SMT 16:56
PROVIDERS: ATTEND Urology
DX: R33.8 Other retention of urine (principal); Z01.818 Encounter for other preprocedural examination; N40.1 Benign prostatic hyperplasia with lower urinary tract symptoms

== ENCOUNTER → 2024-08-25 | Outpatient (CLI) | payer MEDICAID, MEDICARE, OTHER ==
[2024-08-25 11:15] LABS: HEMATOCRIT 41.9 % (42.0-52.0); HEMOGLOBIN 13.9 g/dl (13.5-17.5); MEAN CORPUSCULAR HEMOGLOBIN 29.5 pg (27.0-33.0); MEAN CORPUSCULAR HGB CONC 33.2 g/dl (32.0-36.5); PLATELET COUNT, AUTOMATED 235 10^3/uL (150-450); RED BLOOD COUNT 4.71 10^6/uL (4.30-6.10); WHITE BLOOD COUNT 7.1 10^3/uL (4.0-10.0)
[2024-08-25 11:24] LABS: INR 0.95; PARTIAL THROMBOPLASTIN TIME 28.8 SECONDS (24.8-34.2)
[2024-08-25 11:34] LABS: BLOOD UREA NITROGEN 18 MG/DL (9-23); CALCIUM LEVEL 9.3 MG/DL (8.3-10.6); CARBON DIOXIDE LEVEL 28 MMOL/L (20-31); CHLORIDE LEVEL 103 MMOL/L (98-107); CREATININE FOR GFR 0.96 MG/DL (0.70-1.30); GLOMERULAR FILTRATION RATE > 60.0 (>49); GLUCOSE, FASTING 101 MG/DL (74-106); POTASSIUM SERUM 4.5 MMOL/L (3.5-5.1); SODIUM LEVEL 141 MMOL/L (136-145)
== END ==
LOC: M RAD 09:45
PROVIDERS: ATTEND Urology
DX: R33.8 Other retention of urine (principal)

== ENCOUNTER → 2024-08-26 | Outpatient (REF) | payer MEDICARE, MEDICAID ==
[2024-08-26 15:34] LABS: APPEARANCE, URINE CLOUDY (CLEAR); BACTERIA, URINE AUTO NEGATIVE (NEGATIVE); BILIRUBIN, URINE AUTO NEGATIVE (NEGATIVE); BLOOD, URINE BLOOD 3+ (NEGATIVE); COLOR, URINE YELLOW (YELLOW); GLUCOSE, URINE (UA) AUTO NEGATIVE (NEGATIVE); KETONE, URINE AUTO NEGATIVE (NEGATIVE); LEUKOCYTE ESTERASE, URINE AUTO 1+ (NEGATIVE); MUCUS, URINE SMALL (NEGATIVE); NITRITE, URINE AUTO NEGATIVE (NEGATIVE); PROTEIN, URINE AUTO 1+ mg/dL (NEGATIVE); RBC, URINE AUTO TNTC /HPF (0-3); SPECIFIC GRAVITY URINE AUTO 1.014 (1.002-1.035); SQUAMOUS EPITHELIAL CELL UR AU 1 /HPF (0-6); TRANSITIONAL EPITHELIAL AUTO 8 /HPF; UROBILINOGEN, URINE AUTO 0.2 mg/dL (0.0-2.0); WBC, URINE AUTO 37 /HPF (0-3)
== END ==
LOC: M SMT 12:44
PROVIDERS: ATTEND Urology
DX: N39.0 Urinary tract infection, site not specified (principal)

== ENCOUNTER 2024-09-05 12:01 | Day surgery (SDC) | payer OTHER, MEDICAID ==
[~2024-09-05] VITALS: Ht 182.9 cm; Wt 86.9 kg
[~2024-09-05 12:01] MED LIST changes: +LIDOCAINE 2% 100MG/5ML SDV (FOR ANES.) As Ordered ONE; +ONDANSETRON 4MG 2ML VIAL As Ordered ONE; +propofoL 200 MG/20 ML VIAL As Ordered ONE
[2024-09-05] MEDS: LR 1,000 ML IV SCH (12:46)
[2024-09-05] MEDS ORDERED: VANCOMYCIN HCL 1,000 MG, VIAL MATE ADAPTER 1 EACH in NS 250 ML IV ONE (13:00)
[2024-09-05] MEDS: VANCOMYCIN HCL 1,250 MG, VIAL MATE ADAPTER 1 EACH in NS 250 ML IV ONE (13:13)
[2024-09-05] MEDS ORDERED: MIDAZOLAM INJ 2MG/2ML VIAL As Ordered ONE (15:04)
[2024-09-05] MEDS ORDERED: fentaNYL 100 MCG/2 ML INJECTION As Ordered ONE (15:05)
[2024-09-05] MEDS ORDERED: ROCURONIUM BROMIDE 50MG/5ML VIAL As Ordered ONE (15:26)
[2024-09-05] MEDS: GENTAMICIN 120 MG in D5W 50 ML IV ONE (15:42)
[2024-09-05] MEDS ORDERED: HYDROmorphone HCL 2MG/ML 1ML VIAL As Ordered ONE (16:01)
[2024-09-05] MEDS ORDERED: ACETAMINOPHEN 1000MG/100ML IV BAG As Ordered ONE (16:02)
[2024-09-05] MEDS ORDERED: SUGAMMADEX SODIUM 500 MG/5 ML VIAL (BRIDION) As Ordered ONE (16:07)
[2024-09-05] MEDS: ISOVUE-300 61% 100ML VIAL As Ordered ONE (16:30)
[2024-09-05] MEDS ORDERED: FUROSEMIDE 100MG/10ML VIAL As Ordered ONE (16:37)
[2024-09-05] MEDS ORDERED: ONDANSETRON 4MG 2ML VIAL IV PRN (17:00)
[2024-09-05] MEDS ORDERED: fentaNYL 100 MCG/2 ML INJECTION IV PRN (17:00)
[2024-09-05] MEDS: oxyCODONE 5MG TAB PO PRN (17:32)
[2024-09-05 18:05] VITALS: BP 127/78; TEMP 98.1; O2SAT 96
== END 2024-09-05 18:29 | disposition home or self-care (01) ==
LOC: M SDC 12:01
PROVIDERS: ATTEND Urology
DX: N40.1 Benign prostatic hyperplasia with lower urinary tract symptoms (principal); N13.5 Crossing vessel and stricture of ureter without hydronephrosis; C61 Malignant neoplasm of prostate; Z88.8 Allergy status to other drugs, medicaments and biological substances; Z79.899 Other long term (current) drug therapy; F17.210 Nicotine dependence, cigarettes, uncomplicated
CPT/HCPCS: 52332; 52601; 76000; C2617; J0131; J1100; J1171; J1580; J1940; J2250; J2405; J3010; J3370; Q9967

== ENCOUNTER → 2024-09-23 | Outpatient (REF) | payer OTHER, MEDICAID, MEDICARE ==
[~2024-09-23] MED LIST changes: -LIDOCAINE 2% 100MG/5ML SDV (FOR ANES.) As Ordered ONE; -ONDANSETRON 4MG 2ML VIAL As Ordered ONE; +PRED5TA PO; +ZYTI250T PO; -propofoL 200 MG/20 ML VIAL As Ordered ONE
[2024-09-23 18:42] LABS: APPEARANCE, URINE HAZY (CLEAR); BACTERIA, URINE AUTO 1+ (NEGATIVE); BILIRUBIN, URINE AUTO NEGATIVE (NEGATIVE); BLOOD, URINE BLOOD 3+ (NEGATIVE); COLOR, URINE YELLOW (YELLOW); GLUCOSE, URINE (UA) AUTO NEGATIVE (NEGATIVE); KETONE, URINE AUTO NEGATIVE (NEGATIVE); LEUKOCYTE ESTERASE, URINE AUTO 3+ (NEGATIVE); NITRITE, URINE AUTO NEGATIVE (NEGATIVE); PROTEIN, URINE AUTO 2+ mg/dL (NEGATIVE); RBC, URINE AUTO TNTC /HPF (0-3); SQUAMOUS EPITHELIAL CELL UR AU 0 /HPF (0-6); UROBILINOGEN, URINE AUTO 0.2 mg/dL (0.0-2.0); WBC, URINE AUTO 25 /HPF (0-3)
== END ==
LOC: M SMT 17:03
PROVIDERS: ATTEND Urology
DX: R39.9 Unspecified symptoms and signs involving the genitourinary system (principal)

== ENCOUNTER → 2024-09-23 | Outpatient (CLI) | payer OTHER, MEDICAID | LOC: M ONCR 12:45 | PROVIDERS: ATTEND General Practice | DX: C61 Malignant neoplasm of prostate (principal); R39.9 Unspecified symptoms and signs involving the genitourinary system; R97.20 Elevated prostate specific antigen [PSA]; F17.200 Nicotine dependence, unspecified, uncomplicated; Z90.79 Acquired absence of other genital organ(s); Z80.0 Family history of malignant neoplasm of digestive organs; Z88.8 Allergy status to other drugs, medicaments and biological substances; Z79.891 Long term (current) use of opiate analgesic; Z79.899 Other long term (current) drug therapy; Z79.818 Long term (current) use of other agents affecting estrogen receptors and estrogen levels | CPT/HCPCS: 81001; 87086; G0463 ==

== ENCOUNTER → 2024-11-09 | Outpatient (RCR) | payer OTHER, MEDICAID | LOC: M ONCR 13:42 | PROVIDERS: ATTEND General Practice | DX: Z51.0 Encounter for antineoplastic radiation therapy (principal); C61 Malignant neoplasm of prostate ==

== ENCOUNTER → 2025-01-09 | Outpatient (RCR) | payer OTHER, MEDICAID ==
[~2025-01-09] MED LIST changes: +CYCL5TAB4 PO; +MELO15TA28 PO; +TAMS-18 PO; +TRAM50TA2 PO
== END ==
LOC: M ONCR 12-12 13:00
PROVIDERS: ATTEND General Practice
DX: Z51.0 Encounter for antineoplastic radiation therapy (principal); C61 Malignant neoplasm of prostate

== ENCOUNTER 2025-01-19 12:57 | Outpatient (RCR) | payer OTHER, MEDICAID | END 2025-02-09 | LOC: M ONCR 12:57 | PROVIDERS: ATTEND General Practice | DX: Z51.0 Encounter for antineoplastic radiation therapy (principal); C61 Malignant neoplasm of prostate ==

== ENCOUNTER → 2025-03-12 | Outpatient (CLI) | payer OTHER, MEDICAID ==
[~2025-03-12] MED LIST changes: -IBUP-1022 PO; +IBUP600T42 PO
[2025-03-12 10:03] LABS: BASO # 0.0 10^3/uL (0.0-0.2); BASO % 0.8 % (0.0-1.0); EOS # 0.3 10^3/uL (0.0-0.5); EOS % 5.7 % (0.0-3.0); LYMPH # 0.7 10^3/uL (1.5-5.0); LYMPH % 13.4 % (24.0-44.0); MONO # 0.5 10^3/uL (0.0-0.8); MONO % 10.1 % (2.0-8.0); NEUTROPHILS # 3.4 10^3/uL (1.5-8.5); NEUTROPHILS % 69.6 % (36.0-66.0); PLATELET COUNT, AUTOMATED 220 10^3/uL (150-450)
[2025-03-12 10:33] LABS: C REACTIVE PROTEIN QUANTITATIV < 0.50 MG/DL (<1.0)
[2025-03-12 10:53] LABS: ALT/SGPT 26 U/L (7.0-40); AST/SGOT 23 U/L (<34); CALCIUM LEVEL 9.0 MG/DL (8.3-10.6); CARBON DIOXIDE LEVEL 28 MMOL/L (20-31); CHLORIDE LEVEL 109 MMOL/L (98-107); CREATININE FOR GFR 0.95 MG/DL (0.70-1.30); FREE T4 1.91 NG/DL (0.89-1.76); GLOMERULAR FILTRATION RATE > 90.0 (>49); MAGNESIUM LEVEL 2.1 MG/DL (1.8-2.4); POTASSIUM SERUM 4.2 MMOL/L (3.5-5.1); SODIUM LEVEL 146 MMOL/L (136-145); VITAMIN B12 LEVEL 361 PG/ML (211-911)
== END ==
LOC: M RAD 08:37
PROVIDERS: ATTEND Physician Assistant
DX: M79.605 Pain in left leg (principal); C61 Malignant neoplasm of prostate; G62.9 Polyneuropathy, unspecified; M51.360 Other intervertebral disc degeneration, lumbar region with discogenic back pain only; Z79.899 Other long term (current) drug therapy

== ENCOUNTER → 2025-04-15 | Outpatient (CLI) | payer OTHER, MEDICAID | LOC: M LAB 08:33 | PROVIDERS: ATTEND Urology | DX: C61 Malignant neoplasm of prostate (principal) ==

== ENCOUNTER → 2025-04-21 | Outpatient (CLI) | payer OTHER, MEDICAID | LOC: M ONCR 14:13 | PROVIDERS: ATTEND General Practice | DX: C61 Malignant neoplasm of prostate (principal); F17.210 Nicotine dependence, cigarettes, uncomplicated; Z92.3 Personal history of irradiation; Z79.1 Long term (current) use of non-steroidal anti-inflammatories (NSAID); Z79.51 Long term (current) use of inhaled steroids; Z79.52 Long term (current) use of systemic steroids; Z79.818 Long term (current) use of other agents affecting estrogen receptors and estrogen levels; Z79.899 Other long term (current) drug therapy; Z88.8 Allergy status to other drugs, medicaments and biological substances ==

== ENCOUNTER 2025-06-20 11:00 | Emergency (ER) | payer OTHER, MEDICAID ==
[~2025-06-20] VITALS: Ht 182.9 cm; Wt 86.7 kg
[2025-06-20 11:02] VITALS: BP 144/87; TEMP 97.3; O2SAT 99
[2025-06-20] MEDS ORDERED: KETO-204 PO (11:47)
== END 2025-06-20 12:07 | disposition home or self-care (01) ==
LOC: M ED 11:00
DX: S40.012A Contusion of left shoulder, initial encounter (principal); Y92.019 Unspecified place in single-family (private) house as the place of occurrence of the external cause; Y93.9 Activity, unspecified; Y99.9 Unspecified external cause status; W01.0XXA Fall on same level from slipping, tripping and stumbling without subsequent striking against object, initial encounter; F17.210 Nicotine dependence, cigarettes, uncomplicated; Z88.8 Allergy status to other drugs, medicaments and biological substances; Z79.51 Long term (current) use of inhaled steroids; Z79.2 Long term (current) use of antibiotics; Z79.52 Long term (current) use of systemic steroids; Z79.899 Other long term (current) drug therapy